=== PATIENT | female | born 1935 | race Caucasian/White ===

== ENCOUNTER 2017-06-04 09:51 | Outpatient (CLI) | payer MEDICARE ==
--- NOTE | 2017-06-04 11:59 | RAD ---
2 VIEW CHEST: Date: 06/04/17 HISTORY: Dyspnea. COMPARISON: 04/08/16. FINDINGS: Mild elevation right hemidiaphragm is unchanged in appearance. Increased stranding in the left lung b ase is seen, possibly representing atelectasis or infiltrate. Lungs otherwise appear clear and unchan ged. The heart is mildly enlarged and stable. IMPRESSION: Question new atelectasis or streaky infiltrate in the left lung base. POS: [facility]
== END 2017-06-04 09:52 | disposition home or self-care (01) ==
LOC: RAD 09:51
PROVIDERS: ATTEND Internal Medicine Critical Care Medicine
DX: R06.00 Dyspnea, unspecified (principal)
CPT/HCPCS: 71046

== ENCOUNTER 2017-07-20 08:56 | Outpatient (CLI) | payer MEDICARE ==
--- NOTE | 2017-07-20 10:24 | RAD ---
CHEST 2 VIEWS: HISTORY: R06.00, dyspnea. COMPARISON: Chest radiograph 06/04/17. FINDINGS: Heart size is mildly enlarged. Similar appearance to the left basilar airspace opacity. The right lung is relatively clear. Mild spondylosis. Cardiac size is mildly enlarged. No pneumothorax. Moderate degenerative changes of the acromioclavicular joint. IMPRESSION: Similar appearance to the left basilar airspace opacity. Given the lack of improvement, nonemergent followup CT of the chest may be beneficial. POS: [facility]
== END 2017-07-20 08:57 | disposition home or self-care (01) ==
LOC: RAD 08:56
PROVIDERS: ATTEND Internal Medicine Critical Care Medicine
DX: R06.00 Dyspnea, unspecified (principal)
CPT/HCPCS: 71046

== ENCOUNTER 2017-09-09 12:31 | Outpatient (CLI) | payer MEDICARE | END 2017-09-09 12:32 | disposition home or self-care (01) | LOC: ULT 12:31 | PROVIDERS: ATTEND Internal Medicine | DX: H34.212 Partial retinal artery occlusion, left eye (principal); I11.0 Hypertensive heart disease with heart failure; I50.32 Chronic diastolic (congestive) heart failure; K29.80 Duodenitis without bleeding; I08.3 Combined rheumatic disorders of mitral, aortic and tricuspid valves | CPT/HCPCS: 93306 ==

== ENCOUNTER 2018-03-28 11:46 | Emergency (ER) | payer MEDICARE ==
[2018-03-28] MEDS ORDERED: Acetaminophen 325 MG TAB ONE (12:27)
== END 2018-03-28 14:55 | disposition home or self-care (01) ==
LOC: ERS 11:46
DX: G50.0 Trigeminal neuralgia (principal); E78.5 Hyperlipidemia, unspecified; I10 Essential (primary) hypertension; J44.9 Chronic obstructive pulmonary disease, unspecified; Z86.711 Personal history of pulmonary embolism; Z87.891 Personal history of nicotine dependence
CPT/HCPCS: 36415; 85652; 99283

== ENCOUNTER 2018-04-01 01:21 | Emergency (ER) | payer MEDICARE ==
[2018-04-01 04:24] LABS: Hemoglobin 13.8 g/dL (12.0-16.0); Mean Corpuscular HGB CONC 31.7 g/dL (32.0-36.0); Mean Corpuscular Hemoglobin 29.5 pg (27.0-31.0); Mean Corpuscular Volume 92.9 fL (78.0-98.0); Mean Platelet Volume 7.6 fL (7.4-10.4); Platelet Count 214 thou/uL (130-400); RBC Distribution Width 14.7 % (11.5-14.5); Red Blood Cell (RBC) Count 4.68 mill/uL (4.20-5.40); White Blood Cell (WBC) Count 7.5 thou/uL (4.8-10.8)
[2018-04-01 04:43] LABS: ALT (SGPT) 24 U/L (8-55); AST (SGOT) 21 U/L (5-34); Albumin 3.7 g/dL (3.4-4.8); Alkaline Phosphatase 126 U/L (40-150); Anion Gap 13 mmol/L (10-20); BUN (Urea Nitrogen) 28 mg/dL (9.8-20.1); Bilirubin, Total 0.7 mg/dL (0.2-1.2); Calc. Creatinine Clearance 0 mL/min (70-130); Calcium 9.8 mg/dL (7.8-10.44); Carbon Dioxide 36 mmol/L (23-31); Chloride 92 mmol/L (98-107); Estimated GFR-MDRD 75; Glucose 101 mg/dL (83-110); Potassium 4.2 mmol/L (3.5-5.1); Protein, Total 6.7 g/dL (6.0-8.3); Sodium 137 mmol/L (136-145)
[2018-04-01 04:47] LABS: #Eosinphils 0.1 thou/uL (0.0-0.7); #Lymphocytes 1.5 thou/uL (1.20-3.40); #Monocytes 0.8 thou/uL (0.11-0.59); #Neutrophils 5.1 thou/uL (1.40-6.50); %Basophils 0.3 % (0.0-1.0); %Eosinophils 1.7 % (0.0-10.0); %Lymphocytes 19.6 % (21.0-51.0); %Monocytes 10.5 % (0.0-10.0); %Neutrophils 67.9 % (42.0-75.0); Anisocytosis SLIGHT = 6-15 cells (100X) (0-5/hpf); MDiff Complete? YES
[2018-04-01] MEDS ORDERED: Acetaminophen 325 MG TAB ONE (05:22)
--- NOTE | 2018-04-01 08:38 | CT ---
PRELIMINARY REPORT/[facility]/EMERGENTY AFTER-HOURS PROCEDURE CT Head Without Contrast EXAM DATE/TIME: 04/01/2018 4:20 AM CLINICAL HISTORY: 82 years old, female; Pain; Headache; Patient HX: Er 8; PT states "i've had this pounding in my face (points to right amish) since thursday. TECHNIQUE: Axial computed tomography images of the head/brain without contrast. COMPARISON: No relevant prior studies available. FINDINGS: Brain: Normal. Ventricles: Normal. Bones/joints: Normal. Sinuses: Normal as visualized. Mastoid air cells: Normal as visualized. Soft tissues: Unremarkable. IMPRESSION: No acute intracranial abnormality. Thank you for allowing us to participate in the care of your patient. Dictated and Authenticated by: Domenic Granda MD 04/01/2018 4:30 AM Central Time ([place] & [place]) FINAL REPORT EMERGENCY AFTER HOURS BRAIN CT WITHOUT IV CONTRAST: Date: 04/01/18 Time: 0421 hours HISTORY: Altered mental status. FINDINGS/IMPRESSION: Mild stable atrophy and chronic white matter ischemic change. No mass or bleed, or other acute proces s. Report in agreement with preliminary report given on-call by Dulce Maria. POS: [facility]
== END 2018-04-01 05:53 | disposition home or self-care (01) ==
LOC: ERS 01:21
DX: R51 Headache (principal); E78.5 Hyperlipidemia, unspecified; I10 Essential (primary) hypertension; F41.9 Anxiety disorder, unspecified; F32.9 Major depressive disorder, single episode, unspecified; Z87.891 Personal history of nicotine dependence; Z79.899 Other long term (current) drug therapy
CPT/HCPCS: 36415; 70450; 80053; 85025; 85652

== ENCOUNTER 2018-04-05 14:29 | Outpatient (CLI) | payer MEDICARE | END 2018-04-05 14:30 | disposition home or self-care (01) | LOC: CTENTCT 14:29 | PROVIDERS: ATTEND Otolaryngology Plastic Surgery within the Head & Neck | DX: J32.9 Chronic sinusitis, unspecified (principal) | CPT/HCPCS: 70486 ==

== ENCOUNTER 2018-06-14 13:15 | Outpatient (CLI) | payer MEDICARE ==
--- NOTE | 2018-06-14 13:31 | RAD ---
EXAM: Chest 2 views: HISTORY: Dyspnea COMPARISON: 07/20/2017 FINDINGS: There is a normal-sized cardiomediastinal silhouette. Increased interstitial markings are present. Th ere is no evidence of consolidation, mass, or pleural effusion. The bones are unremarkable. IMPRESSION: No evidence of acute cardiopulmonary disease
== END 2018-06-14 13:16 | disposition home or self-care (01) ==
LOC: RAD 13:15
PROVIDERS: ATTEND Internal Medicine Critical Care Medicine
DX: R06.00 Dyspnea, unspecified (principal)
CPT/HCPCS: 71046

== ENCOUNTER 2018-07-21 10:06 | Outpatient (CLI) | payer MEDICARE ==
--- NOTE | 2018-07-21 11:37 | RAD ---
CHEST TWO VIEWS: INDICATIONS: History of dyspnea. COMPARISON: 06/14/2018 FINDINGS: There is stable cardiomegaly and chronic lung changes. There is stable elevation of the right hemidi aphragm. No acute air space opacity or pleural effusion is evident. Chronic osseous changes are sta ble. IMPRESSION: No definite acute abnormality. POS: [facility]
== END 2018-07-21 10:07 | disposition home or self-care (01) ==
LOC: RAD 10:06
PROVIDERS: ATTEND Internal Medicine Critical Care Medicine
DX: R06.00 Dyspnea, unspecified (principal)
CPT/HCPCS: 71046

== ENCOUNTER 2018-09-28 10:23 | Inpatient (IN) | payer MEDICARE ==
--- NOTE | 2018-09-28 11:36 | RAD ---
XR Chest 1 View Portable History: Dyspnea Comparison: Radiograph July 21, 2018 Findings: Lungs are hypoinflated with vascular crowding. Heart size is enlarged. No pneumothorax. No focal airspace consolidation. There is a linear 1 x 5 mm radiopaque object projecting over the right hemithorax, seen on the prior examination. Impression: Lung hypoinflation and cardiomegaly. No evidence for pneumonia.
[2018-09-28 11:44] LABS: #Eosinphils 0.1 thou/uL (0.0-0.7); #Lymphocytes 0.9 thou/uL (1.20-3.40); #Monocytes 0.6 thou/uL (0.11-0.59); %Basophils 0.6 % (0.0-1.0); %Eosinophils 2.2 % (0.0-10.0); %Lymphocytes 13.7 % (21.0-51.0); %Monocytes 9.4 % (0.0-10.0); %Neutrophils 74.1 % (42.0-75.0); Hemoglobin 12.9 g/dL (12.0-16.0); Mean Corpuscular HGB CONC 32.4 g/dL (32.0-36.0); Mean Corpuscular Hemoglobin 29.5 pg (27.0-31.0); Mean Corpuscular Volume 91.3 fL (78.0-98.0); Platelet Count 193 thou/uL (130-400); RBC Distribution Width 14.8 % (11.5-14.5); Red Blood Cell (RBC) Count 4.35 mill/uL (4.20-5.40); White Blood Cell (WBC) Count 6.7 thou/uL (4.8-10.8)
[2018-09-28 12:16] LABS: ALT (SGPT) 21 U/L (8-55); AST (SGOT) 22 U/L (5-34); Albumin 3.6 g/dL (3.4-4.8); Alkaline Phosphatase 147 U/L (40-150); BUN (Urea Nitrogen) 33 mg/dL (9.8-20.1); Bilirubin, Total 0.4 mg/dL (0.2-1.2); Calc. Creatinine Clearance 0 mL/min (70-130); Calcium 9.9 mg/dL (7.8-10.44); Estimated GFR-MDRD 69; Globulin 3.1 g/dL (2.4-3.5); Glucose 72 mg/dL (83-110); Protein, Total 6.7 g/dL (6.0-8.3)
[2018-09-28 12:25] LABS: Chloride 93 mmol/L (98-107)
[2018-09-28 12:26] LABS: Potassium 3.9 mmol/L (3.5-5.1); Sodium 138 mmol/L (136-145)
[2018-09-28 12:28] LABS: Anion Gap 11 mmol/L (10-20); Carbon Dioxide 38 mmol/L (23-31)
[2018-09-28] MEDS ORDERED: Furosemide 40 MG/4 ML VIAL ONE (13:27)
--- NOTE | 2018-09-28 13:55 | PDOC.FPRHP ---
- History of Present Illness Chief Complaint: SOB History of Present Illness: Pt is a 83yo female with a history of CHF and medication noncompliance who presented to the ED for increasing lower extremity edema and shortness of breath. Pt states that she has been on lasix for a long time for which she attributes soley to her history of edema, denying any knowledge of CHF. For the last 3 days she states she has not taken the lasix because she felt it was not helping. She presented today because she realized last night that she was not able to sleep in her bed due to orthopnea which happens occasionally but was also not even able to sleep in her recliner which is new for her. Pt's daughter is a lining maker hand and coordinates the pt's cardiology care but is currently on vacation and was unable to be reached. Pt denies any cough, fever, chills, chest pain, or other recent illnesses. In the ED pt was given a dose of lasix and immediately started to diurese. While on the monitor she was found to have several episodes of bradycardia with heart rates dropping into the 20s-40s. Pt denied any symptoms during these episodes. She denied any recent lightheadedness, dizziness, or near syncope. She did note noticing some mild palpitations over the last couple weeks. Pt was admitted for CHF exacerbation over a year ago with resulted in acute respiratory failure and her needing to be intubated and discharged to group home for rehab. - Allergies/Adverse Reactions Allergies Allergy/AdvReac Type Severity Reaction Status Date / Time iodine Allergy Severe Short of Verified 11/20/15 06:39 Breath adhesive Allergy Verified 11/20/15 06:39 Cephalosporins Allergy Rash Verified 11/21/15 11:32 - Home Medications Medication Instructions Recorded Confirmed Type Albuterol Sulfate [Ventolin HFA] 2 puff INH Q6HR PRN 11/20/15 11/20/15 History Anastrozole 1 mg PO DAILY 11/20/15 11/20/15 History Atorvastatin Calcium 20 mg PO HS 11/20/15 11/20/15 History Escitalopram Oxalate [Lexapro] 20 mg PO DAILY 11/20/15 11/20/15 History Fish Oil 1,000 mg PO DAILY 11/20/15 11/20/15 History Losartan/Hydrochlorothiazide 1 tab PO DAILY 11/20/15 11/20/15 History [Losartan-Hctz 100-25 mg Tab] Omeprazole Magnesium [Prilosec OTC] 20 mg PO DAILY 11/20/15 11/20/15 History Pramipexole Di-HCl [Pramipexole 2 mg PO BID 11/20/15 11/20/15 History Dihydrochloride] ALPRAZolam [Xanax] 0.25 mg PO BIDPRN PRN #0 tab 11/29/15 Rx Acetaminophen [Tylenol Suppository] 650 mg IN Q4H PRN #0 supp 11/29/15 Rx Apixaban [Eliquis] 5 mg PO BID #0 tab 11/29/15 Rx Aspirin Chewable [Aspirin Chewable 81 mg PO DAILY #0 tab 11/29/15 Rx Tablet] Budesonide-Formoterol [Symbicort 2 puff INH BID-RT #0 aer 11/29/15 Rx 160-4.5] Doxycycline [Vibramycin] 100 mg PO BID #0 cap 11/29/15 Rx Furosemide [Lasix] 80 mg PO 1200 #0 tab 11/29/15 Rx Ipratropium/Albuterol Sulfate 3 ml NEB [id number] #0 neb 11/29/15 Rx [DuoNeb] Losartan/Hydrochlorothiazide 1 tab PO DAILY #0 tab 11/29/15 Rx [Hyzaar] Metoprolol Succinate [Toprol XL] 25 mg PO DAILY #0 tab 11/29/15 Rx Potassium Chloride [K-Dur] 40 meq PO 1000 #0 tab 11/29/15 Rx Pramipexole Di-HCl [Mirapex] 0.5 mg PO BID #0 tab 11/29/15 Rx Spironolactone [Aldactone] 25 mg PO 1000 #0 tab 11/29/15 Rx guaiFENesin ER [Mucinex] 600 mg PO Q12HR #0 tab 11/29/15 Rx Comments: Above medication list is old, please refer to the following for updated Rx: losartan-hydrochlorothiazide 100-25mg, 0.5 tabs daily Eliquis 5mg daily Pantoprazole 40mg daily Atorvastatin 20mg daily Escitalopram 20mg daily Furosemide 80mg BID KCl 20mE1 daily Breo 100mcg-25mcg daily - History PMHx: breast and uterine cancer, HTN, HLD, pulmonary embolism (with chronic anticoagulation), COPD PSHx: Cholecystectomy, hysterectomy, bilateral mastectomy, spinal surgery, venous ablation FHx: Non contributory Social: Quit smoking 50 years ago. No alcohol use. - Review of Systems General: denies: fever/chills, fatigue Eyes: denies: vision changes ENT: reports: rhinorrhea Respiratory: reports: shortness of breath, exercise intolerance. denies: cough , congestion Cardiovascular: reports: palpitation, edema, orthopnea. denies: chest pain Gastrointestinal: denies: nausea, vomiting, diarrhea, constipation, abdominal pain Genitourinary: denies: dysuria, polyuria Skin: denies: rashes, lesions Musculoskeletal: denies: pain, tenderness Neurological: denies: numbness, syncope, weakness Psychological: denies: other - Vital signs BP: [] HR: [] RR: [] Tmax: [] Pox: []% on [] Wt: [] - Physical Exam Constitutional: NAD, awake, alert and oriented -Constitutional: Morbidly obese HEENT: normocephalic and atraumatic, EOMI Neck: supple, FROM -Neck: JVD noted Heart: normal S1/S2, pulses present -Heart: 4+ pitting edema bilaterally to LE, 3/6 holosystolic murmur, bradycardic Abdomen: soft, non-tender, bowel sounds present Musculoskeletal: normal structure, normal tone, ROM grossly normal Neurological: no focal deficit, CN II-XII intact Skin: no rash/lesions, capillary refill <2 seconds Heme/Lymphatic: no unusual bruising or bleeding, no purpura Psychiatric: normal mood and affect, good judgment and insight, intact recent and remote memory FMR H&P: Results - Labs Result Diagrams: 09/28/18 11:10 09/28/18 11:10 Lab results: WBC 6.7 thou/uL (4.8-10.8) 09/28/18 11:10 Hgb 12.9 g/dL (12.0-16.0) 09/28/18 11:10 Hct 39.7 % (36.0-47.0) 09/28/18 11:10 MCV 91.3 fL (78.0-98.0) 09/28/18 11:10 Plt Count 193 thou/uL (130-400) 09/28/18 11:10 Neutrophils % 74.1 % (42.0-75.0) 09/28/18 11:10 Sodium 138 mmol/L (136-145) 09/28/18 11:10 Potassium 3.9 mmol/L (3.5-5.1) 09/28/18 11:10 Chloride 93 mmol/L (98-107) L 09/28/18 11:10 Carbon Dioxide 38 mmol/L (23-31) H 09/28/18 11:10 BUN 33 mg/dL (9.8-20.1) H 09/28/18 11:10 Creatinine 0.80 mg/dL (0.6-1.1) 09/28/18 11:10 Glucose 72 mg/dL (83-110) L 09/28/18 11:10 Calcium 9.9 mg/dL (7.8-10.44) 09/28/18 11:10 Total Bilirubin 0.4 mg/dL (0.2-1.2) 09/28/18 11:10 AST 22 U/L (5-34) 09/28/18 11:10 ALT 21 U/L (8-55) 09/28/18 11:10 Alkaline Phosphatase 147 U/L (40-150) 09/28/18 11:10 B-Natriuretic Peptide 168.7 pg/mL (0-100) H 09/28/18 11:10 Serum Total Protein 6.7 g/dL (6.0-8.3) 09/28/18 11:10 Albumin 3.6 g/dL (3.4-4.8) 09/28/18 11:10 - EKG Interpretation EKG: Sinus bradycardia - Radiology Interpretation Chest x-ray Status: image reviewed by me (Lung hypoinflation, cardiomegaly), report reviewed by ne FMR H&P: A/P - Problem List (1) Acute exacerbation of congestive heart failure Current Visit: Yes Status: Acute Code(s): I50.9 - HEART FAILURE, UNSPECIFIED (2) Bradycardia Current Visit: Yes Status: Acute Code(s): R00.1 - BRADYCARDIA, UNSPECIFIED (3) Noncompliance w/medication treatment due to intermit use of medication Current Visit: Yes Status: Acute Code(s): Z91.14 - PATIENT'S OTHER NONCOMPLIANCE WITH MEDICATION REGIMEN (4) HTN (hypertension) Current Visit: No Status: Chronic Code(s): I10 - ESSENTIAL (PRIMARY) HYPERTENSION Qualifiers: Hypertension type: essential hypertension Qualified Code(s): I10 - Essential (primary) hypertension - Plan Acute on chronic HFpEF exacerbation Recent medication noncompliance with diuretic Last echo 08/2017 showed EF 55-60%, diastolic dysfunction. - Cardiology was consulted and saw pt in ED, per recommendations: -hold toprol -hold eliquis in case need for pacemaker placement -repeat echo -IV diuresis, 40 BID - BNP similar to prior - Monitor output with strict I/Os - HH diet with 1800 fluid restriction Sinus bradycardia - asymptomatic - Beta renaldo discontinued per Dr. Patel - stated may take up to 3 days before it is out of her system - Will admit to telemetry for continous monitoring - Stopped eliquis in case the need for pacemaker placement arises Deconditioning Pt's daughter reports recent generalized deconditioning with decreased exercise tolerance and mobility starting prior to new worsening of her shortness of breath and orthopnea HTN - Stopping beta renaldo - Will continue home Condition: Stable Code status: Full Diet: HH w/ fluid restriction VTE: SCD Dispo: Admit to tele inpt for CHF exacerbation and general deconditioning FMR H&P: Upper Level - Pertinent history 83 yo F with PMH HFpEF, COPD, HTN, HLD, LE edema presents for SOB today. She has noted LE edema for months and doesnt feel Lasix has helped much so she stopped taking it 3 days. Patient lives at home with caregiver assistance and ambulated with wheelchair. Reports significant orthopnea last night, slept in recliner. In ED noted to have intermittent asymptomatic bradycardia down to 30s along with [address] Patel consulted. - Pertinent findings General: NAD Heart: RRR, 3/6 systolic ejection murmur R sternal border, JVD present Lungs: Mild diffuse crackles, no respiratory distress or supplemental O2 Ext: 4+ pitting edema BLE CXR: cardiomegaly BNP 168 EKG: NSR, strip with periods of sinus bradycardia - Plan Date/Time: 09/28/18 1353 Acute on chronic HFpEF exacerbation 2/2 medication noncompliance - Last echo 08/2017 showed EF 55-60%, diastolic dysfunction. Will order repeat echo - Noncompliant with home Lasix 80 mg BID regimen - IV diuresis, 40 BID - BNP similar to prior - Monitor output with strict I/Os Asyptomatic bradycardia - Beta renaldo discontinued - Dr. Patel consulted, plan for consideration of pacemaker and discontinuation of eliquis in preparation - Monitor on telemetry Hx of PE on chronic anticoagulation HTN HLD COPD Hx breast and uterine cancer Ppx: SCDs Code: FULL I, Courtney Hines DO, have evaluated this patient and agree with findings/plan as outlined by graphics intern resident. Pertinent changes/additions are listed here. Addendum - Attending - Attending Attestation Date/Time: 09/29/18 0381 I personally evaluated the patient and discussed the management with Dr. Sinha I agree with the History, Examination, Assessment and Plan documented above with any addition or exceptions noted below.
--- NOTE | 2018-09-28 15:13 | CON ---
DATE OF CONSULTATION: 09/28/2018 REASON FOR CONSULTATION: Bradycardia. HISTORY OF PRESENT ILLNESS: Mrs. Leblanc is a very pleasant 83-year-old white female, who comes to the hospital for shortness of breath. She has been on Lasix chronically for lower extremity edema and three days ago, she decided she did not need it any more as she noticed that the swelling would get better with Lasix, but it would just come back the next day. She said if it is not getting any better, why would I need it. She stopped the Lasix and progressively got more short winded to the point where she could not breathe earlier today, so she was brought in for evaluation of this. She was given a dose of IV Lasix and was getting plan on being admitted for further evaluation and care. She then was placed on the monitor here in the ER and she was found to have several episodes of bradycardia, heart rate down to the 20s to 30s, asymptomatic. She is denying any chest pain, tightness, pressure. No lightheadedness. No syncope or presyncope. On my evaluation, she is talking with me without any issues and she goes down to the 20s at one point and she did not really feel that. When I pointed out on the monitor, she just turned around and sat on and feel the same. Her blood pressure has not been an issue while she has been here and she states she already feeling a little bit better after IV diuresis. She has been on metoprolol 25 mg a day for the last 3 years. About 3 years ago, she was seen in the hospital by Dr. Delatorre for pulmonary embolism and had runs of sustained supraventricular tachycardia, at that point, she was started on the beta-renaldo. She did see Dr. Redd in the office for lower extremity edema and venous disease. She was recommended to undergo venous ablation and she never had it done here, but apparently family tells me she had this done in [place] about 2 years ago. PAST MEDICAL HISTORY: 1. History of pulmonary embolism, currently on chronic anticoagulation. 2. History of breast cancer, status post resection and in remission now. 3. History of diastolic heart failure. 4. History of hyperlipidemia. 5. Hypertension. 6. COPD. SURGICAL HISTORY: 1. Cholecystectomy. 2. Hysterectomy. 3. Bilateral mastectomy. 4. Spinal surgery. 5. Venous ablation from what she is telling me. SOCIAL HISTORY: Former tobacco user. She quit about 55 years ago. No alcohol or drug use. ALLERGIES: 1. ADHESIVE TAPE. 2. IODINE. 3. CEPHALOSPORIN. OUTPATIENT MEDICATIONS: 1. Guaifenesin. 2. Aldactone 25 mg a day. 3. Pramipexole. 4. Potassium chloride. 5. Prilosec. 6. Toprol-XL 25 mg a day. 7. Losartan/hydrochlorothiazide 100/25 a day. 8. DuoNeb. 9. Lasix 40 mg a day. 10. Fish oil. 11. Lexapro. 12. Doxycycline. 13. Symbicort. 14. Lipitor 20 mg a day. 15. Aspirin 81 a day. 16. Eliquis 5 mg b.i.d. 17. Anastrozole. 18. Albuterol inhaler. 19. Tylenol p.r.n. 20. Xanax p.r.n. FAMILY HISTORY: Noncontributory. REVIEW OF SYSTEMS: A 12-point review of systems was done and was all negative unless stated in the history of present illness. PHYSICAL EXAMINATION: VITAL SIGNS: Temperature 97.2, pulse 55 to 62, respiratory rate 18, sat 98% on 2 L nasal cannula. GENERAL: Awake, alert, oriented x3, no distress. HEENT: Normocephalic and atraumatic. NECK: Supple. LUNGS: Clear. CARDIOVASCULAR: S1 and S2. No S3 or S4. No murmurs. ABDOMEN: Soft. Positive bowel sounds. EXTREMITIES: 3+ edema with local erythema and warmth. Not painful. She states she is at her baseline as far as her legs are concerned. SKIN: Warm and dry. LABORATORY DATA: Laboratory work was reviewed. CBC with a white count of 6, hemoglobin 12, hematocrit 39, platelet count of a 193. Chemistry, troponin is undetectable. BNP was 168. BMP is unremarkable except for chloride of 93 and a carbon dioxide of 38, gap of 11, BUN of 33, creatinine 0.8, GFR of 69, glucose was 72, albumin was 3.6. Telemetry strips were reviewed. She has been in sinus rhythm and sinus bradycardia, at one point heart rate went down to 28 beats per minute, asymptomatic. The pauses about 3.2 seconds. ASSESSMENT AND PLAN: 1. Sinus bradycardia. 2. Acute on chronic diastolic heart failure. 3. Medication noncompliance. 4. Aortic valve stenosis in the moderate range on an echo a year ago. 5. History of supraventricular tachycardia in the setting of a pulmonary embolism. 6. Beta-renaldo use. 7. Chronic obstructive pulmonary disease. PLAN: 1. Agree with IV diuresis with Lasix. 2. We will plan on stopping Toprol-XL at this point. She would only be a candidate if she continues to recur her bradycardia off the beta-renaldo. Usually takes up to three days for this medication to wear off. 3. Would monitor in the telemetry unit, make sure she is not having more bradycardia and if her episodes become more frequent, we would plan on trying to put in a temporary first. 4. She is on chronic anticoagulation with Eliquis and actually took a dose this morning. We would have to hold it for now as she would very likely to need a pacemaker in the next few days. 5. Continue IV diuresis with Lasix at 40 IV b.i.d. 6. We will follow. Job ID: [id number]
[2018-09-28] MEDS ORDERED: Acetaminophen 325 MG TAB PO PRN (17:39)
--- NOTE | 2018-09-28 19:17 | PDOC.EVN ---
Event Note - Event Note Event Note: I personally evaluated the patient and discussed the management with Dr. Sinha. I agree with the History and Physical exam assessment and plan as documented in separate note see HX and PE. CC progressive orthopnea last several days she denies any CP HPI pleasant 83 yo female with history medication noncompliance stopped Lasix for several days as she felt was not effective. Patient evaluated in ER with fluid overload and marked bradycardia to 20-30s felt secondary to her beta renaldo. Patient seen In ER per Cardiology and admitted for IV diuresis and expectant management off BB possible need for pacemaker if SSS. Echo last about year EF 55% and diastolic dysfunction. PMX MEDS see resident note list multiple non-compliant with lasix ALLERGIES NKDA HABITS remote tobacco SOCIAL has very attentive caregiver at bedside [facility] hx respiratory arrest intubation SURGERY Bilateral mastectomy, Hysterectomy History: breast CA and later nonrelated uterine CA no radiation,COPD, HTH,HX PE and chronic venous HTN with marked LE edema ROS per resident note P.E. alert pleasant NAD at time of my exam s/p Lasix with marked urine outpt CV BHARGAVI 2-3/6 rate 50s PULM no rales appreciated GI obese non tender Extremities 4+ pitting edema and continues above knees to thighs ASSESSMENT/PLAN Bradycardia admit to telemetry hold BB, follow up echocardiogram and Cardiology consulted for further recommendation r/o SSS drug effect appreciate Cardiology recommendations Fluid overload non compliance rec fluid restriction, sodium restricted diet, IV diuresis HX PE eliquis on hold for possible pacemaker etc HX COPD history respiratory failure requiring intubation reactive airway continue breathing treatments Obesity and Marked deconditioning good candidate for transition to rehab status for continued recovery discussed with Daughter CODE STATUS Full
[2018-09-29] MEDS ORDERED: ALPRAZolam 0.25 MG TAB PO SCH (04:30)
[2018-09-29] MEDS: Furosemide 40 MG/4 ML VIAL SLOW IVP SCH ×2 (05:45→14:25)
--- NOTE | 2018-09-29 06:29 | PDOC.FM ---
- Subjective Subjective: Pt feels her shortness of breath has improved as she was able to sleep at a slightly reclined position last night. Night team was paged for the patient to get her home xanax dose as she was anxious and had difficulty sleeping. She feels the swelling in her legs have also improved. - Objective Vital Signs & Weight: Vital Signs (12 hours) Temp Pulse Resp BP Pulse Ox 09/29/18 04:07 97.1 F L 62 18 145/65 H 97 09/28/18 20:05 70 18 103/61 95 Weight Weight 113.171 kg I&O: 09/27/18 09/28/18 09/29/18 06:59 06:59 06:59 Intake Total 600 Output Total 800 Balance -200 Result Diagrams: 09/28/18 11:10 09/28/18 11:10 Phys Exam - Physical Examination Constitutional: NAD Morbidly obese HEENT: PERRLA, moist MMs Neck: no JVD, full ROM Respiratory: no wheezing, no rales, no rhonchi, clear to auscultation bilateral Cardiovascular: RRR Soft ejection murmur Gastrointestinal: soft, non-tender, positive bowel sounds Musculoskeletal: pulses present, edema present (4+ bilaterally) Neurological: non-focal, moves all 4 limbs Psychiatric: normal affect, A&O x 3 Skin: no rash, cap refill <2 seconds Dx/Plan (1) Acute exacerbation of congestive heart failure Code(s): I50.9 - HEART FAILURE, UNSPECIFIED Status: Acute (2) Bradycardia Code(s): R00.1 - BRADYCARDIA, UNSPECIFIED Status: Acute (3) Noncompliance w/medication treatment due to intermit use of medication Code(s): Z91.14 - PATIENT'S OTHER NONCOMPLIANCE WITH MEDICATION REGIMEN Status : Acute (4) HTN (hypertension) Code(s): I10 - ESSENTIAL (PRIMARY) HYPERTENSION Status: Chronic Qualifiers: Hypertension type: essential hypertension Qualified Code(s): I10 - Essential (primary) hypertension - Plan Plan: Acute on chronic HFpEF exacerbation Recent medication noncompliance with diuretic Last echo 08/2017 showed EF 55-60%, diastolic dysfunction. - Cardiology was consulted and saw pt in ED, per recommendations: -hold toprol -hold eliquis in case need for pacemaker placement -IV diuresis, Lasix 40 BID - BNP similar to prior - Monitor output with strict I/Os - HH diet with 1800 fluid restriction - Echo ordered 09/27, exam still pending - HR ranged 60-70 overnight on vital checks Sinus bradycardia - asymptomatic - Beta renaldo discontinued per Dr. Patel - stated may take up to 3 days before it is out of her system - Stopped eliquis in case the need for pacemaker placement arises - Telemetry for continous monitoring and assessment of pacemaker need - Dr. Delatorre, cardiology, saw pt this am and feels it is very likely she will need pacemaker, will cont to monitor off beta renaldo Deconditioning Pt's daughter reports recent generalized deconditioning with decreased exercise tolerance and mobility starting prior to new worsening of her shortness of breath and orthopnea HTN - Stopping beta renaldo - Waiting to receive home medication list from caregiver this morning - Will restart other home BP medications then - BP this am 145/65 Condition: Stable Code status: Full Diet: HH w/ fluid restriction VTE: SCD Dispo: Admit to tele inpt for CHF exacerbation and general deconditioning
--- NOTE | 2018-09-29 09:09 | PRG ---
DATE OF SERVICE: 09/29/2018 SUBJECTIVE: Ms. Pringle feels better today. She said she had a restless night; however. She said her breathing is better. OBJECTIVE: VITAL SIGNS: Her blood pressure is 145/65 and pulse is now in the 60 range, but she did have heart rate in the 20s last night while sleeping. LUNGS: Clear. CARDIAC: Normal S1. Normal S2. ABDOMEN: Soft and nontender. EXTREMITIES: There is still [id number] edema. ASSESSMENT: 1. Diastolic congestive heart failure. 2. Severe sinus bradycardia. 3. History of pulmonary embolism. I believe that is the reason, she is still on Eliquis from three years ago. PLAN: 1. Eliquis has been discontinued for now. 2. Continue intravenous diuresis. 3. Repeat echocardiogram. 4. Almost certainly will need pacemaker insertion if she indeed was only getting 25 mg of metoprolol a day, need to try to confirm that was the dose she was taking at home, in the chart, there are question elizabeth on that dose. Job ID: [id number]
[2018-09-29] MEDS: Spironolactone 25 MG TAB PO SCH (10:49)
[2018-09-29] MEDS ORDERED: PROVENTIL INHALER 6.7 G (200 INHALATIONS) INH PRN (11:42)
[2018-09-29] MEDS ORDERED: Potassium Chloride 20 MEQ TAB PO SCH (12:00)
--- NOTE | 2018-09-29 12:02 | PRG ---
DATE OF SERVICE: 09/29/2018 Ms. Pringle is a pleasant 83-year-old lady with a history of diastolic heart failure. She quit taking her high dosages of Lasix 3 days ago because she "did not think they were doing any good." She became progressively more short of breath and presented with significant pulmonary congestion and exacerbation of diastolic heart failure. She was also noted to have a profound bradycardia with a rate down in the 20s despite being only on 25 mg a day of metoprolol. She has been seen already by Cardiology, and we appreciate their input. We are waiting for the metoprolol to wear off after 3 days to re-evaluate her for possible pacemaker. In the event clinically, she has diuresed well and is already feeling better. Job ID: [id number]
[2018-09-29] MEDS: Mometasone/Formoterol 120 PUFF INHALER INH SCH (19:03)
[2018-09-29] MEDS: Pramipexole Di-HCl 1 MG TAB PO SCH (20:14)
[2018-09-29] MEDS: guaiFENesin ER 600 MG TAB PO SCH (20:15)
[2018-09-29] MEDS: Atorvastatin Calcium 20 MG TAB PO SCH (20:15)
[2018-09-29] MEDS ORDERED: ALPRAZolam 0.25 MG TAB PO PRN (20:59)
--- NOTE | 2018-09-30 02:33 | PDOC.EVN ---
Event Note - Event Note Event Note: Patient with several prolonged pauses had 14 sec pause with unresponsiveness she responded to CPR initiation with 4-5 chest compressions. Patient is alert and responsive with temporary transcutaneous pacer leads placed but not actuated. BP 160/90 p80 will transfer to CCU and Cardiology notified for further consideration.family notified.
[2018-09-30] MEDS ORDERED: Atropine Sulfate 1 mg/1 ml Vial IVP PRN (02:47)
[2018-09-30] MEDS ORDERED: Lorazepam 0.5 MG TAB PO SCH (03:00)
[2018-09-30 04:08] LABS: Anion Gap 11 mmol/L (10-20); BUN (Urea Nitrogen) 31 mg/dL (9.8-20.1); Calc. Creatinine Clearance 106 mL/min (70-130); Calcium 9.5 mg/dL (7.8-10.44); Carbon Dioxide 37 mmol/L (23-31); Chloride 91 mmol/L (98-107); Estimated GFR-MDRD 77; Glucose 104 mg/dL (83-110); Potassium 4.1 mmol/L (3.5-5.1); Sodium 135 mmol/L (136-145)
[2018-09-30] MEDS: Furosemide 40 MG/4 ML VIAL SLOW IVP SCH (05:27)
[2018-09-30] MEDS: Mometasone/Formoterol 120 PUFF INHALER INH SCH ×2 (07:04→19:15)
--- NOTE | 2018-09-30 07:15 | PDOC.FM ---
- Subjective Subjective: pt resting comfortably in bed, denies repeat dizziness/syncope. denies cp or sob currently - Objective Vital Signs & Weight: Vital Signs (12 hours) Temp Pulse Resp BP Pulse Ox 09/30/18 07:04 67 16 09/30/18 03:00 97.5 F L 98 09/29/18 23:30 97.5 F L 09/29/18 21:31 77 12 09/29/18 19:23 97.5 F L 76 18 138/60 95 Weight Admit Weight 114.033 kg Weight 11.6 kg Most Recent Monitor Data Heart Rate from ECG 65 NIBP 96/55 NIBP BP-Mean 68 Respiration from ECG 15 SpO2 98 I&O: 09/29/18 09/30/18 10/01/18 06:59 06:59 06:59 Intake Total 600 1080 Output Total 800 3600 Balance -200 -2520 Result Diagrams: 09/28/18 11:10 09/30/18 03:21 Phys Exam - Physical Examination Constitutional: NAD HEENT: moist MMs Neck: no JVD Respiratory: clear to auscultation bilateral Cardiovascular: no significant murmur Gastrointestinal: no distention Musculoskeletal: no edema, pulses present Neurological: moves all 4 limbs Psychiatric: normal affect Skin: no rash Dx/Plan (1) Acute exacerbation of congestive heart failure Code(s): I50.9 - HEART FAILURE, UNSPECIFIED Status: Acute (2) Bradycardia Code(s): R00.1 - BRADYCARDIA, UNSPECIFIED Status: Acute (3) Pulmonary emboli Code(s): I26.99 - OTHER PULMONARY EMBOLISM WITHOUT ACUTE COR PULMONALE Status : Acute Qualifiers: Pulmonary embolism type: other Chronicity: acute Acute cor pulmonale presence: without acute cor pulmonale Qualified Code(s): I26.99 - Other pulmonary embolism without acute cor pulmonale (4) Dyslipidemia Code(s): E78.5 - HYPERLIPIDEMIA, UNSPECIFIED Status: Chronic (5) HTN (hypertension) Code(s): I10 - ESSENTIAL (PRIMARY) HYPERTENSION Status: Chronic Qualifiers: Hypertension type: essential hypertension Qualified Code(s): I10 - Essential (primary) hypertension - Plan Plan: bradycardia with sinus pause - overnight on 09/30, responded to compressions, transcutaneous pacer in place ( not active), transferred to ccu - atropine PRN - cardiology consulted appreciate recs Acute on chronic HFpEF exacerbation - Last echo 08/2017 showed EF 55-60%, diastolic dysfunction, repeat is similar - Cardiology consulted appreciate recs - Monitor output with strict I/Os - HH diet with 1800 fluid restriction HTN - beta renaldo held, monitor and resume home meds as needed Hx of PE - eliquis held for poss pacemaker placement Code status: Full Diet: HH w/ fluid restriction VTE: SCD Dispo: monitor in ccu, eval need for pacemaker placement Addendum - Attending - Attending Attestation Date/Time: 09/30/18 3154 I personally evaluated the patient and discussed the management with Dr. Bolden. I agree with the History, Examination, Assessment and Plan documented above with any addition or exceptions noted below. Patient here with CHF exacerbation but currently appears euvolemic. She had long cardiac pause last night and had to be transferred to CCU for monitoring and potential for transcutaneous pacing. She is not requiring at this time. Awaiting further cardiology recs. Will plan to back off of diuresis today.
[2018-09-30] MEDS ORDERED: Sodium Chloride 0.9% 1,000 ML IV SCH (09:15)
--- NOTE | 2018-09-30 09:34 | PRG ---
DATE OF SERVICE: 09/30/2018 SUBJECTIVE: Ms. Pringle was moved to the intensive care unit last night after having a prolonged pause 8 seconds with a syncopal episode. She has pacing pads in place now. She is now in normal sinus rhythm. OBJECTIVE: VITAL SIGNS: Her blood pressure now is 90 systolic. LUNGS: Clear. CARDIAC: Normal S1, normal S2. ABDOMEN: Obese, nontender. ASSESSMENT: 1. Episodes of severe bradycardia. She has been off the beta-blockers for several days now, and apparently, she was only taking 25 mg of metoprolol. 2. History of pulmonary embolism years ago. She did receive a dose of Eliquis, but that has been over 48 hours now. PLAN: I have discussed pacemaker insertion. Discussed risks of bleeding, infection, lead dislodgement around the lung, blood around the heart, she understands and wished to proceed. Job ID: [id number]
--- NOTE | 2018-09-30 09:44 | CON ---
DATE OF CONSULTATION: HISTORY OF PRESENT ILLNESS: Zayda Pringle is an 83-year-old female, weight 72 kg, blood pressure 113/66, who came to the hospital with lower extremity swelling. Also had some leg pain. She has been in the hospital for several days. Yesterday, she developed bradycardia and shortness of breath. She was transferred to the ICU. She also has orthopnea and PND from [id number]. She has sleep apnea, but apparently did not wear a CPAP machine. The patient is quite deconditioned. PAST MEDICAL HISTORY: Pertinent for hypertension; breast cancer; COPD; asthma; uterine cancer; PE, long-term anticoagulation; and diastolic dysfunction. PAST SURGICAL HISTORY: Cholecystectomy, hysterectomy, mastectomy of both breast, back surgery, and leg surgery. SOCIAL HISTORY: Former smoker, quit 10 years ago, a pack a day for many years. ALLERGIES: IODINE, CEPHALOSPORIN. MEDICATIONS: 1. Protonix 40. 2. Breo 200. 3. Singulair 10, nebulizer. 4. Toprol-XL 25. 5. Atorvastatin 20. 6. Fish oil. 7. Losartan. 8. Eliquis 5 twice a day. 9. Ventolin inhaler. 10. Xanax. REVIEW OF SYSTEMS: Otherwise, 10-point negative. PHYSICAL EXAMINATION: GENERAL: She appears to be in no acute distress. Awake, alert, and responsive. VITAL SIGNS: Blood pressure this morning is 110/80, pulse 67, respirations 18, saturations are 90%. CHEST: No wheezing or crackles. CARDIAC: Normal S1 and S2. No gallops. ABDOMEN: No masses. IMAGING STUDIES: X-ray was clear. I see no acute infiltrates. IMPRESSION: 1. Diastolic dysfunction. 2. Severe bradycardia. 3. History of long-term pulmonary embolism. 4. Chronic obstructive pulmonary disease. 5. Asthma. . Job ID: [id number]
[2018-09-30] MEDS: Pantoprazole 40 MG GRANULES PACKET PO SCH (09:50)
[2018-09-30] MEDS: Montelukast Sodium 10 mg Tablet PO SCH (09:56)
[2018-09-30] MEDS: Pramipexole Di-HCl 1 MG TAB PO SCH ×2 (09:56→22:14)
[2018-09-30] MEDS: Fish Oil 1,000 MG CAP PO SCH (09:57)
[2018-09-30] MEDS: guaiFENesin ER 600 MG TAB PO SCH ×2 (09:57→22:14)
[2018-09-30] MEDS: Escitalopram Oxalate 20 mg Tablet PO SCH (09:57)
[2018-09-30] MEDS ORDERED: Potassium Chloride 20 MEQ TAB PO SCH (10:00)
[2018-09-30] MEDS: Spironolactone 25 MG TAB PO SCH (10:15)
[2018-09-30] MEDS ORDERED: Lidocaine 1% (PF) 30 ML VIAL ONE (14:04)
[2018-09-30] MEDS ORDERED: CEFAZOLIN 1 GM VIAL ONE (14:04)
[2018-09-30] MEDS ORDERED: Gentamicin 80 MG/2 ML VIAL ONE (14:04)
[2018-09-30] MEDS ORDERED: Clindamycin/D5W 600 mg/50 ml Premix Bag ONE (14:53)
[2018-09-30] MEDS ORDERED: Levofloxacin 500 mg/D5W 100 ml Premix Bag ONE (14:53)
[2018-09-30] MEDS ORDERED: Midazolam HCl 2 mg/2 ml Vial ONE (15:44)
--- NOTE | 2018-09-30 17:39 | RAD ---
PORTABLE AP CHEST X-RAY: 09/30/18 HISTORY: Post cardiac device placement. COMPARISON: 09/28/18. FINDINGS: There has been interval placement of a dural lead left subclavian cardiac pacemaking device. No pneum othorax or pleural effusion is seen on the left. There is persistent elevation of the right hemidiaph ragm with atelectasis at the right lung base. Metallic clip again overlies the right lung base. Vascu lar calcifications are seen in the thoracic aorta. There is linear atelectasis present in the region of the lingula. No other interval change. IMPRESSION: 1. Interval placement of a dual lead left subclavian cardiac pacemaking device without evidence of a pneumothorax or pleural effusion seen on the left. 2. Persistent elevation of the right hemidiaphragm with volume loss right lung base. POS: JENN
--- NOTE | 2018-09-30 18:38 | CCL ---
DATE OF PROCEDURE: 09/30/18 INDICATION FOR PROCEDURE: 83-year-old female with symptomatic bradycardia and significant pauses. Pauses are more than 8 second s and syncope. She was advised to undergo pacemaker insertion. She was taken to the cardiac [facility] where she underwent the procedure today without too much diffi culty or complications. She was implanted with a dual chamber pacemaker from [employer] with two screw -in leads. One in the atrium and one in the ventricle. She was implanted with an [place] MRI compatible device. The upper rate was set at 120 and the lower rate was set at 60. She was given 1 mg of IV bakari sed for conscious sedation. Throughout the procedure was monitored by an independent observer present for heart rate, blood pressure and O2 saturation. Total sedation time was 45 minutes.
[2018-09-30] MEDS: Atorvastatin Calcium 20 MG TAB PO SCH (22:14)
[2018-10-01 04:32] VITALS: BMI 44.4
--- NOTE | 2018-10-01 06:12 | PDOC.FM ---
- Subjective Subjective: Pt states she is doing great today stating that since her pacemaker placement yesterday she has not experienced any palpitations or any shortness of breath. She notes continued improvement in her lower extremity swelling as well. Denies CP, SOB, LH, or dizziness. - Objective Vital Signs & Weight: Vital Signs (12 hours) Temp Pulse Resp BP Pulse Ox 10/01/18 04:00 97.8 F 79 20 116/61 97 09/30/18 22:13 86 12 09/30/18 20:15 97.5 F L 93 18 106/54 L 95 09/30/18 18:46 82 12 98 Weight Admit Weight 114.033 kg Weight 113.7 kg Most Recent Monitor Data Heart Rate from ECG 93 NIBP 89/45 NIBP BP-Mean 59 Respiration from ECG 28 SpO2 97 I&O: 09/29/18 09/30/18 10/01/18 06:59 06:59 06:59 Intake Total 600 1080 466 Output Total 800 3600 650 Balance -200 -2520 -184 Result Diagrams: 09/28/18 11:10 09/30/18 03:21 Phys Exam - Physical Examination Constitutional: NAD Morbidly obese HEENT: PERRLA, moist MMs Neck: no JVD, full ROM Respiratory: no wheezing, no rales, no rhonchi, clear to auscultation bilateral Cardiovascular: RRR 4/6 holosystolic murmur Gastrointestinal: soft, non-tender, positive bowel sounds Musculoskeletal: pulses present, edema present (1-2+ pitting bilaterally) Neurological: non-focal, moves all 4 limbs Psychiatric: normal affect, A&O x 3 Skin: no rash, cap refill <2 seconds Dx/Plan (1) Acute exacerbation of congestive heart failure Code(s): I50.9 - HEART FAILURE, UNSPECIFIED Status: Acute (2) Noncompliance w/medication treatment due to intermit use of medication Code(s): Z91.14 - PATIENT'S OTHER NONCOMPLIANCE WITH MEDICATION REGIMEN Status : Acute (3) HTN (hypertension) Code(s): I10 - ESSENTIAL (PRIMARY) HYPERTENSION Status: Chronic Qualifiers: Hypertension type: essential hypertension Qualified Code(s): I10 - Essential (primary) hypertension (4) Sinus bradycardia Code(s): R00.1 - BRADYCARDIA, UNSPECIFIED Status: Acute - Plan Plan: Sinus bradycardia - Stopped eliquis for pacemaker placement - Telemetry showed continuous sinus bradycardia with pauses, asystole period , pacemaker placement 09/30 - Cardiology restarted pt's beta renaldo - Current rates range from 70-95bpm - Pt is currently medically stable, will await cardiology recs for further management Acute on chronic HFpEF exacerbation Recent medication noncompliance with diuretic Last echo 08/2017 showed EF 55-60%, diastolic dysfunction. - BNP similar to prior - Monitor output with strict I/Os - HH diet with 1800 fluid restriction - Echo ordered 09/27: EF 60-65%, 1/3 diastolic dysfunction, aortic stenosis Deconditioning Pt's daughter reports recent generalized deconditioning with decreased exercise tolerance and mobility starting prior to new worsening of her shortness of breath and orthopnea HTN - Beta renaldo held prior to procedure and restarted yesterday - Holding home Hyzaar - BP this am = 116/61 Hx of pulmonary embolism, on chronic anticoagulation - pt's eliquis was held for pacemaker placement yesterday - will wait for cardiology to resume it, likely 24hrs post procedure Condition: Stable Code status: Full Diet: HH w/ fluid restriction VTE: SCD Dispo: Admit to tele inpt following pacemaker placement yesterday, pts rate is now controlled
[2018-10-01] MEDS: Mometasone/Formoterol 120 PUFF INHALER INH SCH ×2 (07:28→19:27)
[2018-10-01] MEDS: Montelukast Sodium 10 mg Tablet PO SCH (09:08)
[2018-10-01] MEDS: Fish Oil 1,000 MG CAP PO SCH (09:08)
[2018-10-01] MEDS: Pramipexole Di-HCl 1 MG TAB PO SCH ×2 (09:08→20:31)
[2018-10-01] MEDS: guaiFENesin ER 600 MG TAB PO SCH ×2 (09:08→20:31)
[2018-10-01] MEDS: Pantoprazole 40 MG GRANULES PACKET PO SCH (09:09)
[2018-10-01] MEDS: Escitalopram Oxalate 20 mg Tablet PO SCH (09:09)
--- NOTE | 2018-10-01 09:48 | PRG ---
DATE OF SERVICE: 10/01/2018 SUBJECTIVE: This morning, the patient is better status post pacemaker for severe bradycardia. OBJECTIVE: VITAL SIGNS: Temperature 97, pulse 88, respiratory rate 20, sats 100%, blood pressure 107/59. CHEST: Decreased breath sounds. No wheezing. CARDIAC: Normal S1 and S2. No gallops. ABDOMEN: No masses. IMPRESSION: Respiratory failure, congestive heart failure, bradycardia, chronic obstructive pulmonary disease, advanced age, deconditioning. PLAN: She appears to have much improved. PT supportive care. Disposition as per primary care physician. X-ray shows the chronically elevated right hemidiaphragm. Job ID: [id number]
--- NOTE | 2018-10-01 11:07 | PRG ---
DATE OF SERVICE: 10/01/2018 Ms. Pringle had her pacemaker placed yesterday and feels much better. She also had a nice brisk diuresis from her IV Lasix during the last 12 to 24 hours. She is ambulating with assistance and clinically looks much improved. She will likely be ready for either rehab placement or discharge in a day or two. Job ID: [id number]
--- NOTE | 2018-10-01 14:43 | PRG ---
DATE OF SERVICE: 10/01/2018 SUBJECTIVE: Ms. Pringle is doing well. She feels much better since the pacemaker is inserted. No chest pain or pressure. OBJECTIVE: VITAL SIGNS: Blood pressure is on the low side, 100/57 and pulse 78. LUNGS: Clear. CARDIAC: Normal S1 and normal S2. ASSESSMENT: 1. Episodes of severe sinus bradycardia with a sinus arrest over 8 seconds. 2. Status post pacemaker insertion. 3. Diastolic congestive heart failure. PLAN: 1. Resume metoprolol that has been done. 2. Resume diuretics tomorrow. 3. The patient could be discharged at any time. The patient could be taken off telemetry in any time. Job ID: [id number]
[2018-10-01] MEDS: Atorvastatin Calcium 20 MG TAB PO SCH (20:31)
[2018-10-01] MEDS ORDERED: Apixaban 2.5 MG TAB PO SCH (21:00)
[2018-10-02 05:26] LABS: #Eosinphils 0.1 thou/uL (0.0-0.7); #Lymphocytes 0.9 thou/uL (1.20-3.40); #Monocytes 0.9 thou/uL (0.11-0.59); #Neutrophils 4.8 thou/uL (1.40-6.50); %Basophils 0.4 % (0.0-1.0); %Eosinophils 1.4 % (0.0-10.0); %Lymphocytes 13.2 % (21.0-51.0); %Monocytes 13.3 % (0.0-10.0); %Neutrophils 71.7 % (42.0-75.0); Hemoglobin 12.8 g/dL (12.0-16.0); Mean Corpuscular HGB CONC 32.7 g/dL (32.0-36.0); Mean Corpuscular Hemoglobin 30.1 pg (27.0-31.0); Mean Corpuscular Volume 92.1 fL (78.0-98.0); Mean Platelet Volume 7.9 fL (7.4-10.4); Platelet Count 157 thou/uL (130-400); RBC Distribution Width 14.9 % (11.5-14.5); Red Blood Cell (RBC) Count 4.26 mill/uL (4.20-5.40); White Blood Cell (WBC) Count 6.6 thou/uL (4.8-10.8)
[2018-10-02 05:48] LABS: Anion Gap 11 mmol/L (10-20); BUN (Urea Nitrogen) 18 mg/dL (9.8-20.1); Calc. Creatinine Clearance 110 mL/min (70-130); Calcium 9.3 mg/dL (7.8-10.44); Carbon Dioxide 33 mmol/L (23-31); Chloride 97 mmol/L (98-107); Estimated GFR-MDRD 80; Glucose 102 mg/dL (83-110); Potassium 4.3 mmol/L (3.5-5.1); Sodium 137 mmol/L (136-145)
--- NOTE | 2018-10-02 05:59 | PDOC.FM ---
- Subjective Subjective: No complaints this morning. No CP or SOB - Objective MAR Reviewed: Yes Vital Signs & Weight: Vital Signs (12 hours) Temp Pulse Resp BP Pulse Ox 10/02/18 04:00 98.1 F 88 18 138/69 92 L 10/02/18 02:24 87 12 10/01/18 22:11 12 10/01/18 20:24 100 10/01/18 19:19 83 16 91 L Weight Admit Weight 114.033 kg Weight 113.942 kg Most Recent Monitor Data Heart Rate from ECG 93 NIBP 89/45 NIBP BP-Mean 59 Respiration from ECG 28 SpO2 97 I&O: 09/30/18 10/01/18 10/02/18 06:59 06:59 06:59 Intake Total 5124 420 5098 Output Total 3600 1150 1300 Balance -2520 -284 140 Result Diagrams: 10/02/18 04:24 10/02/18 04:24 Phys Exam - Physical Examination Constitutional: NAD HEENT: moist MMs Neck: supple Respiratory: clear to auscultation bilateral Cardiovascular: RRR systolic murmur Gastrointestinal: soft, non-tender Musculoskeletal: pulses present, edema present 1+ edema Neurological: non-focal, moves all 4 limbs Lymphatic: no nodes Psychiatric: normal affect Skin: no rash Dx/Plan (1) Acute exacerbation of congestive heart failure Code(s): I50.9 - HEART FAILURE, UNSPECIFIED Status: Acute (2) Noncompliance w/medication treatment due to intermit use of medication Code(s): Z91.14 - PATIENT'S OTHER NONCOMPLIANCE WITH MEDICATION REGIMEN Status : Acute (3) HTN (hypertension) Code(s): I10 - ESSENTIAL (PRIMARY) HYPERTENSION Status: Chronic Qualifiers: Hypertension type: essential hypertension Qualified Code(s): I10 - Essential (primary) hypertension (4) Sinus bradycardia Code(s): R00.1 - BRADYCARDIA, UNSPECIFIED Status: Acute - Plan Plan: Sinus bradycardia - Stopped eliquis for pacemaker placement - Telemetry showed continuous sinus bradycardia with pauses, asystole period , pacemaker placement 09/30 - Current rates range from 70-90bpm - Tolerating Metoprolol well. - Pt is currently medically stable, will await cardiology recs for further management Acute on chronic HFpEF exacerbation Recent medication noncompliance with diuretic Last echo 08/2017 showed EF 55-60%, diastolic dysfunction. - BNP similar to prior - Monitor output with strict I/Os - HH LSO diet with fluid restriction 1800 - Echo ordered 09/27: EF 60-65%, 1/3 diastolic dysfunction, aortic stenosis Deconditioning Pt's daughter reports recent generalized deconditioning with decreased exercise tolerance and mobility starting prior to new worsening of her shortness of breath and orthopnea -PT/OT consulted HTN - On Metoprolol and Spironolactone - Holding home Hyzaar - BP this am = 116/61 Hx of pulmonary embolism, on chronic anticoagulation -Restart Eliquis tomorrow - Condition: Stable Code status: Full Diet: HH LSO with fluid restriction 1800 VTE: SCD Dispo: Will evaluate tele. Nimesh/pipo setting up inpt rehab.
[2018-10-02] MEDS: Mometasone/Formoterol 120 PUFF INHALER INH SCH (07:25)
[2018-10-02] MEDS ORDERED: Furosemide 80 MG TAB PO SCH (07:30)
[2018-10-02] MEDS ORDERED: Spironolactone 25 MG TAB PO SCH (08:00)
[2018-10-02] MEDS ORDERED: Potassium Chloride 20 MEQ TAB PO SCH (08:00)
[2018-10-02] MEDS: Pramipexole Di-HCl 1 MG TAB PO SCH (09:42)
[2018-10-02] MEDS: Escitalopram Oxalate 20 mg Tablet PO SCH (09:42)
[2018-10-02] MEDS: Montelukast Sodium 10 mg Tablet PO SCH (09:42)
[2018-10-02] MEDS: guaiFENesin ER 600 MG TAB PO SCH (09:42)
[2018-10-02] MEDS: Fish Oil 1,000 MG CAP PO SCH (09:42)
[2018-10-02] MEDS: Pantoprazole 40 MG GRANULES PACKET PO SCH (09:42)
--- NOTE | 2018-10-02 11:16 | PRG ---
DATE OF SERVICE: 10/02/2018 Ms. Pringle is pleasant, awake, alert, sitting in bed. She is continuing with a good diuresis and is back on metoprolol. We can restart her Eliquis in anticipation of possibly being discharged today or tomorrow. Job ID: [id number]
[2018-10-02 17:00] VITALS: BP 107/51; TEMP 97.6
--- NOTE | 2018-10-02 17:11 | PRG ---
DATE OF SERVICE: 10/02/2018 SUBJECTIVE: Zayda Pringle has no new complaints. She says she is feeling better. She says her swelling has gone down. OBJECTIVE: VITAL SIGNS: She is afebrile. Heart rate is in 80s, respiratory rate 16, oximetry is 95% on room air, blood pressure 111/56. LUNGS: Clear. HEART: Regular rhythm. ABDOMEN: Soft. LABORATORY DATA: White count 6.6, hemoglobin 12.8, platelets 157. Sodium 137, potassium 4.3, chloride 97, bicarb 33, BUN 18, creatinine 0.7. IMPRESSION: 1. Sinus bradycardia with sinus arrest over 8 seconds. 2. Status post pacemaker. 3. Diastolic heart failure with fluid retention. 4. Asthma, which is clinically stable. She will keep her followup appointments with me in the office. Job ID: [id number]
[2018-10-03] MEDS ORDERED: Apixaban 2.5 MG TAB PO SCH (09:00)
--- NOTE | 2018-10-05 04:58 | DIS ---
DATE OF ADMISSION: 09/28/2018 DATE OF DISCHARGE: 10/02/2018 RESIDENT: Jason Sinha DO ADMITTING ATTENDING: Lilly Smith MD DISCHARGE ATTENDING: Coy Sharp MD CONSULTS: 1. Cardiology, Dr. Delatorre. 2. Pulmonology, Dr. Dc. 3. Case Management, PT OT. PROCEDURES: 09/30/2018, dual-chamber pacemaker-[employer]; no complications. PRIMARY DIAGNOSES: Symptomatic bradycardia, acute exacerbation of congestive heart failure, noncompliance with medication treatment. SECONDARY DIAGNOSES: Hypertension, history of pulmonary embolism, and dyslipidemia. DISCHARGE MEDICATIONS: 1. Ventolin 2 puffs q.6 hours. 2. Atorvastatin 20 mg at bedtime. 3. Lexapro 20 mg daily. 4. Fish oil 1000 mg daily. 5. Breo one puff daily. 6. Losartan/hydrochlorothiazide 50 mg/12.5 mg half tab daily. 7. Singulair 10 mg daily. 8. Pantoprazole 40 mg daily. 9. Pramipexole 2 mg b.i.d. 10. Xanax 0.25 mg b.i.d. 11. Eliquis 2.5 mg b.i.d. 12. Aspirin 81 mg daily. 13. Lasix 40 mg b.i.d. 14. Mucinex 600 mg q.12 hours. 15. Ipratropium/albuterol 3 mL nebulizer q.4 hours p.r.n. 16. Metoprolol succinate 25 mg p.o. daily. 17. K-Dur 40 mEq p.o. daily. DISCONTINUED MEDICATIONS: Lasix 80 mg b.i.d. HOSPITAL COURSE: The patient is an 83-year-old female with history of CHF and medication noncompliance, who presented to the ED for increased lower extremity edema, shortness of breath, and orthopnea. She stated that she has been off her Lasix for 3 days. She presented due to inability to sleep in her recliner due to increasing orthopnea. The patient's daughter is a language specialist and coordinates her cardiac medical care, but was currently on vacation. In the ED, the patient was found to be bradycardic with heart rates ranging from 20s to 40 beats per minute, although she was asymptomatic during this time. She was seen by the language specialist, who felt that an admission was necessary to continue to monitor. She was admitted to telemetry and had her Lasix restarted at 40 mg b.i.d. The patient's metoprolol was held due to her bradycardia. The patient's daughter noted that in the past, she has had problems with medication noncompliance and taking too many medications accidentally. Cardiology felt that it was important to watch the patient for at least 3 days due to the possibility of metoprolol overdose and the need for washout. Over the next couple of days, the patient was found to have heart rates dropping into the 20s and had pauses as long as 9 seconds. The patient subsequently had asystole that lasted greater than 10 seconds and resulted in the patient receiving compression. Prism Inspector then decided to go for a pacemaker placement. The patient's Eliquis has been held since her admission for this expected intervention. She subsequently had pacemaker placed on 09/30/2018. She had no complications. Subsequent day, the patient stated that her shortness of breath was feeling much better. She also noted that her lower extremity edema had been gradually improving throughout her stay and felt like it was nearing her baseline. The patient had been seen by PT and OT throughout her stay, who felt that fci care following discharge would be in the patient's best interest. The patient and family agreed with this and the patient was subsequently discharged to [facility]. DISPOSITION: Stable. DISCHARGE INSTRUCTIONS: 1. Location: [facility]. 2. Diet: Heart healthy. 3. Activity: As tolerated. 4. Followup: PCP, Dr. Muir, within 7 days, Cardiology, Dr. Abdi Redd, as recommended. Job ID: [id number]
--- NOTE | 2018-10-05 15:43 | EKG ---
Test Reason : PRIYA LEG SWELLING Blood Pressure : / mmHG Vent. Rate : 063 BPM Atrial Rate : 063 BPM P-R Int : 230 ms QRS Dur : 098 ms QT Int : 428 ms P-R-T Axes : 052 026 041 degrees QTc Int : 437 ms Sinus rhythm with 1st degree A-V block Otherwise normal ECG Confirmed by SONDRA Celestin, DANN ([id number]), editor newspaper MATT ADORNO ([id number] on 10/05/2018 3:43:21 PM Referred By: Confirmed By:DANN AMARO M.D.
--- NOTE | 2018-10-05 15:43 | EKG ---
Test Reason : Blood Pressure : / mmHG Vent. Rate : 043 BPM Atrial Rate : 043 BPM P-R Int : 222 ms QRS Dur : 102 ms QT Int : 462 ms P-R-T Axes : 029 002 015 degrees QTc Int : 390 ms Marked sinus bradycardia with sinus arrhythmia with 1st degree A-V block Abnormal ECG Confirmed by DANN AMARO M.D. ([id number]), editor house organ MATT ADORNO ([id number]) on 10/05/2018 3:43:23 PM Referred By: Confirmed By:DANN AMARO M.D.
== END 2018-10-02 18:08 | DRG 242 ==
LOC: ERS 10:23 → ERHOLD 14:12 → 2NO 17:27 → CCU 09-30 02:23 → 2NO 09-30 16:56
PROVIDERS: ADMIT Family Medicine; ATTEND Family Medicine
PROC: 0JH606Z Insertion of Pacemaker, Dual Chamber into Chest Subcutaneous Tissue and Fascia, Open Approach (ICD-10-PCS; principal; 2018-09-30)
PROC: 02H63JZ Insertion of Pacemaker Lead into Right Atrium, Percutaneous Approach (ICD-10-PCS; 2018-09-30)
PROC: 02HK3JZ Insertion of Pacemaker Lead into Right Ventricle, Percutaneous Approach (ICD-10-PCS; 2018-09-30)
DX: I49.5 Sick sinus syndrome (principal); I50.33 Acute on chronic diastolic (congestive) heart failure; Z68.41 Body mass index [BMI] 40.0-44.9, adult; E66.01 Morbid (severe) obesity due to excess calories; Z91.14 Patient's other noncompliance with medication regimen; I11.0 Hypertensive heart disease with heart failure; J44.9 Chronic obstructive pulmonary disease, unspecified; E78.5 Hyperlipidemia, unspecified; Z86.711 Personal history of pulmonary embolism; Z79.01 Long term (current) use of anticoagulants; Z85.3 Personal history of malignant neoplasm of breast; Z85.42 Personal history of malignant neoplasm of other parts of uterus; Z90.49 Acquired absence of other specified parts of digestive tract; Z90.710 Acquired absence of both cervix and uterus; Z90.13 Acquired absence of bilateral breasts and nipples; Z87.891 Personal history of nicotine dependence; Z88.1 Allergy status to other antibiotic agents; Z91.041 Radiographic dye allergy status; Z79.899 Other long term (current) drug therapy
CPT/HCPCS: 33208; 36415; 71045; 76942; 80048; 80053; 83880; 84484; 85025; 93005; 93010; 93306; 93798; 94640; 94760; 96374; 99152; 99153; C1785; C1898; J0690; J1580; J1940; J1956; J2001; J2250; J3370; J3490; J7620

== ENCOUNTER 2018-11-22 13:33 | Outpatient (CLI) | payer MEDICARE | END 2018-11-22 13:34 | disposition home or self-care (01) | LOC: ULT 13:33 | PROVIDERS: ATTEND Internal Medicine | DX: I08.3 Combined rheumatic disorders of mitral, aortic and tricuspid valves (principal) | CPT/HCPCS: 93306 ==

== ENCOUNTER 2019-02-14 05:00 | Emergency (ER) | payer MEDICARE ==
[2019-02-14] MEDS ORDERED: Albuterol Sulfate 2.5 mg/0.5 ml Neb ONE (05:22)
[2019-02-14] MEDS ORDERED: Albuterol Sulfate 2.5 mg/3 ml Neb ONE (05:22)
[2019-02-14] MEDS ORDERED: predniSONE 20 MG TAB ONE (05:54)
--- NOTE | 2019-02-14 09:21 | RAD ---
1 VIEW CHEST: Date: 02/14/19 COMPARISON: 09/30/18. HISTORY: Cough. FINDINGS: Atherosclerosis and slight elongation of the aorta. Normal cardiac silhouette. Pulmonary vessels and hilum are normal. Costophrenic angles are clear. Stable elevation of the right hemidiaphragm. Chronic changes in the lung parenchyma, without suspicious masses or consolidation. No pneumothorax. Stable left-sided transvenous pacemaker. IMPRESSION: Chronic changes. Atherosclerosis. POS: CET
== END 2019-02-14 06:01 | disposition home or self-care (01) ==
LOC: ERS 05:00
DX: J45.901 Unspecified asthma with (acute) exacerbation (principal); J44.9 Chronic obstructive pulmonary disease, unspecified; J06.9 Acute upper respiratory infection, unspecified; E78.5 Hyperlipidemia, unspecified; I10 Essential (primary) hypertension; F41.9 Anxiety disorder, unspecified; F32.9 Major depressive disorder, single episode, unspecified; Z79.899 Other long term (current) drug therapy
CPT/HCPCS: 71045; 94640; J7512; J7611; J7620

== ENCOUNTER 2019-05-10 10:03 | Inpatient (IN) | payer MEDICARE ==
[2019-05-10 11:27] LABS: #Eosinphils 0.1 thou/uL (0.0-0.7); #Lymphocytes 0.9 thou/uL (1.20-3.40); #Monocytes 1.6 thou/uL (0.11-0.59); #Neutrophils 14.4 thou/uL (1.40-6.50); %Basophils 0.2 % (0.0-1.0); %Eosinophils 0.4 % (0.0-10.0); %Monocytes 9.5 % (0.0-10.0); Hemoglobin 15.1 g/dL (12.0-16.0); Mean Corpuscular HGB CONC 33.4 g/dL (32.0-36.0); Mean Corpuscular Hemoglobin 31.4 pg (27.0-31.0); Mean Platelet Volume 7.7 fL (7.4-10.4); Platelet Count 260 thou/uL (130-400); RBC Distribution Width 14.3 % (11.5-14.5); Red Blood Cell (RBC) Count 4.81 mill/uL (4.20-5.40); White Blood Cell (WBC) Count 16.9 thou/uL (4.8-10.8)
--- NOTE | 2019-05-10 11:31 | CT ---
Head CT without contrast 05/10/2019: COMPARISON: 04/01/2018 HISTORY: Injury TECHNIQUE: Axial CT imaging at 5 mm intervals from vertex through skull base without contrast FINDINGS: The imaged paranasal sinuses and mastoid air cells are well-aerated. No displaced calvarial fracture. No intracranial hemorrhage, midline shift, mass effect, or ventricular enlargement. IMPRESSION: No acute findings.
--- NOTE | 2019-05-10 11:43 | CT ---
Exam: CT LUMBAR SPINE WITHOUT CONTRAST: COMPARISON: 09/23/2016. HISTORY: Low back pain, onset Thursday morning. Patient fell while trying to get into wheelchair on Thu day. FINDINGS: Visualized solid organs are unremarkable. There is atherosclerosis of a nonaneurysmal aorta. There is atrophy of the posterior spinous rectus muscles. There is symmetric attenuation of the psoas muscles. There is diffuse bone demineralization. Mild degenerative changes in both sacroiliac joints. There ap pears to be slight angulation and callus formation at the S1-S2 level suggesting a remote fracture. Findings are similar to the previous examination. There do appear to be mild osteoporotic fractures a long the superior aspect of L1, superior and inferior aspect of L3 and the superior aspect of L4. Sclerosis favors a chronic process. There is no evidence of spondylolysis. There appears to be 3.6 mm of retrolisthesis of L1 upon L2 and 3.1 mm of retrolisthesis of L2 upon L3. There appears to be distraction of the T11 vertebral body with abnormal soft tissue attenuation repla cing the majority of the T11 vertebral body. Findings may represent a pathologic fracture. Limited evaluation of the contents of the central spinal canal and neural foramina due to technique. T10-T11: Mild to moderate central canal stenosis T11-T12: Moderate to severe central canal stenosis secondary to disc material and component of retrop ulsion. T12-L1: Vacuum disc phenomenon. At least mild central canal stenosis and mild to moderate bilateral f oraminal narrowing. L1-L2: Mild central canal stenosis. Moderate bilateral foraminal narrowing. L2-L3: Moderate central canal stenosis. Moderate to severe bilateral foraminal narrowing. L3-L4: Mild central canal stenosis. Moderate to severe bilateral foraminal narrowing. L4-L5: Severe central canal stenosis. Moderate to severe bilateral foraminal narrowing. L5-S1: No significant central canal stenosis. Moderate to severe bilateral neural foraminal narrowing . IMPRESSION: 1. Probable pathologic fracture at the T11 vertebral body level. There is abnormal soft tissue attenu ation replacing the majority of the T11 vertebral body. 2. Diffuse bone demineralization with probable osteoporotic fractures involving the lumbar spine and sacrum as described above. Sacral fractures are also felt to be chronic. Transcribed Date/Time: 05/10/2019 12:06 PM
[2019-05-10 11:49] LABS: ALT (SGPT) 64 U/L (8-55); AST (SGOT) 142 U/L (5-34); Albumin 3.9 g/dL (3.4-4.8); Alkaline Phosphatase 143 U/L (40-110); Anion Gap 18 mmol/L (10-20); BUN (Urea Nitrogen) 74 mg/dL (9.8-20.1); Bilirubin, Total 0.9 mg/dL (0.2-1.2); Calc. Creatinine Clearance 0 mL/min (70-130); Calcium 9.7 mg/dL (7.8-10.44); Carbon Dioxide 28 mmol/L (23-31); Chloride 93 mmol/L (98-107); Estimated GFR-MDRD 31; Glucose 160 mg/dL (83-110); Potassium 3.9 mmol/L (3.5-5.1); Protein, Total 6.9 g/dL (6.0-8.3); Sodium 135 mmol/L (136-145)
--- NOTE | 2019-05-10 11:51 | CT ---
CT Pelvis WO Con History: Injury. Fall Comparison: None. Findings: Please see lumbar spine CT for findings of the lumbar spine. There is healing insufficiency fracture of the sacrum on the right S1 zone 1. Age-indeterminate transversely oriented fracture of the sacrum S2 involving zone 3. No SI joint widening. The obturator rings are intact. The femoral heads and necks are intact. The fem oral heads and necks are intact. High-grade posterior paraspinal muscle atrophy. Fat-containing anterior right lateral ventral hernia. Asymmetric atrophy right piriformis muscle. Mild atrophy of the gluteus musculature. Impression: 1. Age-indeterminate S2 zone 3 transversely oriented fracture. 2. Intact femoral heads and necks. 3. Insufficiency fracture, healing, right S1 zone 1.
[2019-05-10 12:55] LABS: Bilirubin Negative (Negative); Blood, Urine 3+ (Negative); Clarity Clear (Clear); Glucose, Urine (Dipstick) Normal (Negative); Leukocyte Negative Leu/uL (Negative); Nitrite Negative (Negative); Protein, Urine (Dipstick) 30 mg/dL (Neg-Trace); RBC/HPF None Seen HPF (0-3); Squamous Epithelial 0-3 HPF (0-3); Urobilinogen Normal mg/dL (Less than 2); WBC/HPF 0-3 HPF (0-3)
[2019-05-10 12:58] LABS: Bacteria/HPF None Seen HPF (None Seen)
--- NOTE | 2019-05-10 14:17 | RAD ---
Portable frontal chest radiograph: 05/10/2019 COMPARISON: 02/14/2019 HISTORY: Fall, trauma, pain FINDINGS: There is elevation of the right hemidiaphragm, unchanged when compared to prior exam. Stabl e dual lead transvenous pacing device. No pneumothorax or pleural fluid. No focal consolidation or alveolar edema. IMPRESSION: Stable appearance of the chest-no acute findings.
[2019-05-10 14:21] LABS: CK (CPK) 2733 U/L (29-168); Magnesium 2.7 mg/dL (1.6-2.6); Phosphorus 4.6 mg/dL (2.3-4.7)
[2019-05-10] MEDS ORDERED: Magnevist 469MG/ML 20 ML VIAL ONE ×2 (14:42)
[2019-05-10 15:00] LABS: CKMB 31.4 ng/mL (0-6.6)
[2019-05-10] MEDS ORDERED: Ondansetron ODT 4 MG TAB PO PRN (15:48)
[2019-05-10] MEDS ORDERED: Ondansetron PF 4 MG/2 ML Vial IVP PRN (15:48)
[2019-05-10] MEDS ORDERED: hydrALAZINE 20 MG/ML VIAL SLOW IVP PRN (15:48)
[2019-05-10] MEDS ORDERED: Morphine 2 MG/ML SYRINGE SLOW IVP PRN (15:48)
[2019-05-10] MEDS ORDERED: Dextrose 50% Abboject 50 ML SYRINGE SLOW IVP PRN (15:48)
[2019-05-10] MEDS ORDERED: Morphine 4 MG/ML VIAL SLOW IVP PRN (15:48)
[2019-05-10] MEDS ORDERED: Dextrose 5% in Water 1,000 ML IV PRN (15:48)
[2019-05-10] MEDS: Sodium Chloride 0.9% 1,000 ML IV SCH (16:10)
[2019-05-10 17:26] LABS: CKMB 26.4 ng/mL (0-6.6); Critical Call CKMB RESULT DECREASING
[2019-05-10 19:36] VITALS: BMI 40.2
[2019-05-10 19:58] LABS: Troponin I 0.105 ng/mL (< 0.028)
[2019-05-10] MEDS ORDERED: traMADol HCl 50 MG TAB PO PRN ×2 (20:40)
[2019-05-10] MEDS ORDERED: PROVENTIL INHALER 6.7 G (200 INHALATIONS) INH PRN (20:40)
[2019-05-10] MEDS: Cyclobenzaprine 10 MG TAB PO PRN (21:08)
[2019-05-10] MEDS: Gabapentin 100 MG CAP PO SCH (21:09)
[2019-05-10] MEDS ORDERED: Acetaminophen 500 MG TAB PO SCH (23:59)
--- NOTE | 2019-05-11 00:21 | CON ---
DATE OF CONSULTATION: 05/10/2019 This is Tawny Zimmer PA-C dictating a report for Daniele Decker MD. HISTORY OF PRESENT ILLNESS: The patient is an 83-year-old female with a past medical history of hypertension, hyperlipidemia, history of prior breast cancer last treated in 2011, COPD, pacemaker, who presented to the emergency department for evaluation of increased back pain and bilateral leg weakness after a fall on Thursday. The patient reports that she was visiting the lab to get her blood work done. When she sat back into her wheelchair, she missed the wheelchair and landed on her bottom. Following this event, she had progressive increase in back pain and some increased heaviness in both of her legs. She normally walks with a walker for short distances and only uses wheelchair when going along long distances or getting out of the house. She is having difficulty using her walker secondary to bilateral leg weakness. She denies any sensation changes, bowel or bladder issues. She was brought to the emergency department, where a noncontrast CT of the lumbar spine was done which was notable for a T11 burst fracture with moderate retropulsion, which appears to be likely due to bony fragments as well as questionable invasion of this level with soft tissue abnormality. Radiologist for possible pathologic fracture and patient does have a history of remote breast cancer. We attempted to get MRI of the thoracic and lumbar spine. However, the patient has a known pacemaker and did not initially have the card. We have since obtained the pacemaker card, which shows it is an MRI-conditional pacemaker. PAST MEDICAL HISTORY: Hypertension, hyperlipidemia, history of malignancy primary to the right breast as well as prior uterine cancer, COPD, pacemaker. PAST SURGICAL HISTORY: Cholecystectomy, hysterectomy,pacemaker. SOCIAL HISTORY: The patient lives at home. She does not smoke, drink, or use any drugs. She is a former smoker. CURRENT MEDICATION LIST: 1. Eliquis 5 mg one tablet p.o. b.i.d. 2. Atorvastatin 20 mg one tablet p.o. daily. 3. Escitalopram 20 mg one tablet p.o. daily. 4. Alendronate 70 mg one tablet p.o. daily. 5. Aspirin 325 mg one tablet p.o. daily. 6. Pramipexole 1 mg two tabs p.o. b.i.d. 7. Prilosec 10 mg one tablet p.o. daily. 8. Metoprolol 50 mg one tablet p.o. daily. 9. Anastrozole 1 mg one tablet p.o. daily. PHYSICAL EXAMINATION: VITAL SIGNS: Temp is 97.6, pulse is 85, respiration is 16, the patient is 94% on 2 L nasal cannula, BP is 136/76. CONSTITUTIONAL: Awake, alert, in no acute distress. HEENT: Head, normocephalic and atraumatic. Eyes, PERRLA. Extraocular movements intact. ENT: Oral mucosa is pink, intact, and moist. She has normal voice. NECK: Nontender, not appear to have any meningismus or nuchal rigidity. CARDIOPULMONARY: Regular rate and rhythm. Symmetric chest expansion. No evidence of dyspnea. MUSCULOSKELETAL: She has free active range of motion of the upper extremities. No focal motor weakness in the upper extremities and the lower extremities. Sensation is intact to light touch. She does have some weakness proximally when attempting to flex at the knees or lift the legs off the bed. She appears to have good strength in legs distally, particularly plantar and flexion bilaterally. She is somewhat hyperreflexive over the bilateral knee jerk reflexes. NEUROLOGIC: A and O x4. She is somewhat weak in the lower extremities particularly in the proximal bilateral lower extremities. ASSESSMENT AND PLAN: This is an 83-year-old female with mechanical fall on Thursday, with fracture at T11 but also soft tissue abnormality of the bone not completely visualized on CT. There is concern for possible underlying mass with pathologic fx. We will attempt to get MRI of the lumbar and thoracic spine with and without contrast for further evaluation once pacemaker rep is available. The patient has been fitted with a OmnireliantO clamshell brace, which she should wear at all times. When she has fitted the brace, we will also get physical therapy and begin to mobilize her but only in the brace. I have discussed the plan with Dr. Decker, who is in agreement. Job ID: [id number] [id number]
--- NOTE | 2019-05-11 02:13 | HP ---
This is Ceci Cole NP dictating a report for Colten Enamorado MD. CONSULTS: Neurosurgery, Dr. Decker. CHIEF COMPLAINT: Ground level fall. HISTORY OF PRESENT ILLNESS: This is an 83-year-old female who lives at home with a sales and service advisor. The patient has a significant past medical history of diastolic dysfunction with preserved ejection fraction, recent pacemaker placement; history of pulmonary embolisms, on long-term Eliquis; COPD; chronic pedal edema. The patient reports falling as she was trying to get in her wheelchair. The patient was at home alone when this happened. The patient denies feeling weak, dizzy, short of breath, or having any chest pain prior to falling. The patient denies hitting her head. The patient was found the next day by her sales and service advisor lying on the ground. The patient was unable to get herself up off the ground and back into her wheelchair. The patient reported some low back pain. The patient continued to have low back pain and her sales and service advisor noticed that she was not able to transition herself from wheelchair to bed. The patient was brought into the emergency room for evaluation by her sales and service advisor by private vehicle. The patient was evaluated and found to have a T11 fracture with retropulsion. The patient denies any numbness or tingling to any extremities. Neurosurgery was consulted and a TLSO clamshell was ordered for all times. Trauma Service was asked to admit the patient. The patient and caregiver report a rash to her chest and abdomen that started earlier this morning. The patient reports that she got a similar rash whenever she had her pacemaker placed in the research laboratory specialist several months ago. The patient denies any pain or itching. Nursing staff reports that the redness has increased some since she has arrived in the emergency room. PAST MEDICAL HISTORY: Diastolic dysfunction, COPD, hypertension, hyperlipidemia, lower extremity edema, pacemaker placement, breast cancer, uterine cancer. PAST SURGICAL HISTORY: Cholecystectomy, hysterectomy, bilateral mastectomy, spinal surgery, venous ablation, pacemaker placement. SOCIAL HISTORY: Previous smoker, quit 50 years ago, no alcohol use, no illicit drug use. ALLERGIES: IODINE, ADHESIVE TAPE, CEPHALOSPORINS. CURRENT MEDICATIONS: 1. Acetaminophen 650 mg p.o. q.4 hours. 2. Diamox 250 mg p.o. daily. 3. Ventolin inhaler 2 puffs q.6 hours. 4. Eliquis 5 mg p.o. b.i.d. 5. Vitamin C 250 mg p.o. daily. 6. Bumex 2 mg p.o. daily. 7. Wellbutrin XL 300 mg p.o. daily. 8. Calcium 500 mg p.o. daily. 9. Lexapro 20 mg p.o. daily. 10. Breo Ellipta inhaler. 11. Mucinex 600 mg q.12 hours. 12. DuoNeb q.4 hours. 13. Singulair 10 mg p.o. daily. 14. Multivitamins p.o. daily. 15. Protonix 40 mg p.o. daily. 16. K-Dur 40 mEq p.o. daily. 17. Spironolactone 50 mg p.o. daily. 18. Pramipexole 10 mg p.o. daily. REVIEW OF SYSTEMS: A 10-point review of systems is negative unless otherwise indicated in the above HPI. OBJECTIVE: VITAL SIGNS: Temperature 97.6, pulse 84, respirations 16, SpO2 of 96% on room air, blood pressure 136/76. GENERAL: Elderly female, awake, alert, no distress. HEENT: Head is atraumatic and normocephalic. Pupils are equal bilateral, extraocular muscles are intact, pupils equal bilateral, no cervical spine tenderness, trachea is midline. RESPIRATORY: Equal chest rise and fall, bilateral breath sounds clear, no wheezing, rales, or rhonchi, prolonged expiratory phase. CARDIOVASCULAR: Regular rate, regular rhythm, 3/6 systolic murmur. ABDOMEN: Soft, nontender, nondistended, active bowel sounds, no peritoneal signs. EXTREMITIES: Moves all extremities, distal pulses 2+, strength 5/5 in all extremities, sensation intact, 2+ pitting pedal edema. PELVIS: Stable. NEUROLOGIC: GCS 15, no focal deficits. Cranial nerves intact. SKIN: Macular rash varying in diameter from 1 to 3 cm, flat appearing, lan-red appearing, bilateral arms, abdomen, chest, bilateral thighs with healthy-looking skin intervening. LABORATORY DATA: WBC 16.9, RBC 4.81, hemoglobin 15.1, hematocrit 45.3, platelets 260. Sodium 135, potassium 3.9, chloride 93, carbon dioxide 20, anion gap 18, BUN 74, creatinine 1.59, estimated GFR 31, glucose 160, calcium 9.7, phosphorus 4.6, magnesium 2.7. AST 142; ALT 64; alkaline phos 143; CK 2733, repeat 2231; CK-MB 31.4, repeat 26.4; troponin I 0.144, repeat 0.100. BNP 149.9. Serum total protein 6.9, albumin 3.9. Urinalysis is negative for wbc's, negative nitrites, negative bacteria. DIAGNOSTICS: 1. Brain CT; impression, no intracranial hemorrhage. 2. Lumbar spine CT; impression, probable pathologic fracture at the T11 vertebral body level. Abnormal soft tissue attenuation replacing the majority of the T11 vertebral body. Diffuse bone demineralization with probable osteoporotic fractures involving the lumbar spine and sacrum. Sacral fractures also felt to be chronic. 3. Pelvis CT; impression, intact femoral heads and necks, insufficiency fracture healing, right S1, zone 1, age indeterminate S2, zone 3 transversely oriented fracture. 4. Chest x-ray; impression, stable appearance of chest, no acute findings. There is elevation of the right hemidiaphragm. ASSESSMENT: 1. Status post ground level fall with delayed presentation. 2. T11 vertebral body fracture with retropulsion. 3. Chronic sacral fractures. 4. Hyponatremia. 5. Acute on chronic kidney injury, stage 3. 6. Morbilliform rash, unknown cause. 7. History of diastolic dysfunction, hypertension, chronic obstructive pulmonary disease, chronic anticoagulation use, pulmonary embolisms, pacemaker placement, dual chamber. PLAN: The patient will be on bedrest until fitted TLSO clamshell. The patient is to wear TLSO clamshell at all times. We will have Physical and Occupational Therapy work with patient once our TLSO is in place. Neurosurgery plans to obtain an MRI. We will gently hydrate the patient with normal saline 100 mL an hour. We will place the patient on a heart healthy diet. We will place the patient on a pain regimen. We will repeat labs in the morning. The patient's elevated CK and liver enzymes are likely due to prolonged downtime. Patient's daughter is concerned the patient may have Lewy body dementia and has been trying to get the patient in to see Neuropsych. We will place a Neurology consult. The plan has been discussed with the attending who agrees. Job ID: [id number]
[2019-05-11] MEDS: Morphine 2 MG/ML SYRINGE SLOW IVP PRN ×3 (02:31→08:18)
[2019-05-11] MEDS: Sodium Chloride 0.9% 1,000 ML IV SCH (02:35)
--- NOTE | 2019-05-11 02:44 | PRG ---
DATE OF SERVICE: 05/10/2019 SUBJECTIVE: The patient was seen this evening during rounds. She was sitting up in bed with clamshell TLSO in place. She reported that she was having some pain and was hungry. Additional pain medication and a sandwich were provided to the patient by Nursing. OBJECTIVE: VITAL SIGNS: Temperature 97.5, pulse 79, respirations 18, oxygen saturation 100% on 1.5 L nasal cannula, blood pressure 124/79. GENERAL: Well-appearing elderly female, sitting up in bed with no signs of acute distress. PULMONARY: Equal chest rise and fall. No signs of acute respiratory distress. EXTREMITIES: Gross motor and sensation is intact. NEUROLOGIC: GCS is 15. No focal neurological deficits. ASSESSMENT: 1. Status post ground level fall, on Eliquis. 2. T11 fracture with retropulsion. 3. Right lateral thigh abrasion. 4. Acute hyponatremia. 5. Cbktr-om-wlwozzm kidney disease. 6. History of chronic sacral fracture, congestive heart failure with diastolic dysfunction, pacemaker, hypertension, pulmonary embolism, dyslipidemia, chronic obstructive pulmonary disease, breast and uterine cancer, bilateral mastectomies, osteoporosis, and bilateral lower extremity venous insufficiency. PLAN: Continue current diet and pain regimen. Continue IV fluids overnight. We will discontinue them likely in the morning after a repeat blood work. We will restart her home medications as clinically indicated. We will hold her diuretics as she was dehydrated upon arrival with [id number] kidney injury. Clamshell TLSO at all times, we will follow that up. We will complete an MRI of the T and L-spine in the morning. The patient has a pacemaker and the fiscal technician reported they will not complete the MRI until [employer] is able to tell them that the pacemaker is MRI compatible. The patient will start working with Physical and Occupational Therapy and will likely need placement at a rehab facility. Job ID: [id number]
[2019-05-11] MEDS ORDERED: Acetaminophen/Codeine 30-300mg Tablet PO PRN (03:11)
[2019-05-11] MEDS: Acetaminophen/Codeine 30-300mg Tablet PO PRN ×2 (03:20→14:22)
[2019-05-11] MEDS: Acetaminophen 325 MG TAB PO SCH ×4 (05:16→23:55)
[2019-05-11 05:48] LABS: #Eosinphils 0.1 thou/uL (0.0-0.7); #Lymphocytes 0.7 thou/uL (1.20-3.40); #Monocytes 1.2 thou/uL (0.11-0.59); #Neutrophils 8.3 thou/uL (1.40-6.50); %Eosinophils 0.8 % (0.0-10.0); %Lymphocytes 6.7 % (21.0-51.0); %Monocytes 11.6 % (0.0-10.0); %Neutrophils 80.9 % (42.0-75.0); Hemoglobin 13.2 g/dL (12.0-16.0); Mean Corpuscular HGB CONC 32.3 g/dL (32.0-36.0); Mean Corpuscular Hemoglobin 30.6 pg (27.0-31.0); Mean Corpuscular Volume 94.9 fL (78.0-98.0); Mean Platelet Volume 7.9 fL (7.4-10.4); Platelet Count 217 thou/uL (130-400); RBC Distribution Width 14.1 % (11.5-14.5); White Blood Cell (WBC) Count 10.3 thou/uL (4.8-10.8)
[2019-05-11 06:12] LABS: Anion Gap 12 mmol/L (10-20); BUN (Urea Nitrogen) 56 mg/dL (9.8-20.1); Calc. Creatinine Clearance 62 mL/min (70-130); Calcium 8.6 mg/dL (7.8-10.44); Carbon Dioxide 31 mmol/L (23-31); Chloride 96 mmol/L (98-107); Estimated GFR-MDRD 52; Glucose 105 mg/dL (83-110); Magnesium 2.5 mg/dL (1.6-2.6); Potassium 3.3 mmol/L (3.5-5.1); Sodium 136 mmol/L (136-145)
[2019-05-11 06:14] LABS: CK (CPK) 951 U/L (29-168); Phosphorus 3.5 mg/dL (2.3-4.7)
[2019-05-11] MEDS: Mometasone/Formoterol 120 PUFF INHALER INH SCH ×2 (07:23→19:34)
[2019-05-11] MEDS ORDERED: Potassium Chloride 40 MEQ in Premix Bag 1 BAG IVPB SCH (07:45)
[2019-05-11] MEDS: Cyclobenzaprine 10 MG TAB PO PRN ×2 (08:33→20:07)
--- NOTE | 2019-05-11 08:50 | PRG ---
DATE OF SERVICE: 05/11/2019 The patient is seen and examined. I agree with Tawny Knox' evaluation on 05/10/2019. The patient is an 83-year-old woman, who fell 1 day prior to admission, landing on her buttocks. She then sustained immediate back pain and since that time has had a feeling of leg heaviness and weakness. The patient then presented to medical attention for further evaluation. The patient generally uses a walker and a wheelchair to get around prior to this. She has a history of both breast cancer and uterine cancer and also has significant cardiovascular disease with a pacemaker, COPD, and on Eliquis. CT scan reveals a T11 burst fracture with possibility of pathologic lesion of the T11 vertebral body. IMPRESSION AND PLAN: The patient will need MRI scan of the thoracic and lumbar spines. We will include the cervical spine given some vague arm complaints. She is not a realistic surgical candidate, but it would be good to define the lesion at T11 to comp with the best treatment strategy. Discussed with the patient. We will continue TLSO bracing for now and hold Nettie. Job ID: [id number]
[2019-05-11] MEDS ORDERED: Prevnar 13-Val Conj/PF 0.5 ML SYRINGE IM ONE (09:00)
[2019-05-11] MEDS: Pantoprazole 40 MG GRANULES PACKET PO SCH (09:20)
[2019-05-11] MEDS: Acetaminophen/Codeine 30-300mg Tablet PO SCH ×4 (09:20→23:55)
[2019-05-11] MEDS: Montelukast Sodium 10 mg Tablet PO SCH (09:22)
[2019-05-11] MEDS: Bupropion 150 MG XL TAB PO SCH (09:22)
[2019-05-11] MEDS: Escitalopram Oxalate 20 mg Tablet PO SCH (09:22)
[2019-05-11] MEDS: Gabapentin 100 MG CAP PO SCH ×3 (09:23→19:58)
[2019-05-11] MEDS: Pramipexole Di-HCl 1 MG TAB PO SCH ×2 (09:23→19:58)
--- NOTE | 2019-05-11 12:13 | MRI ---
MRI of thecervical spine with and without contrast: 05/11/2019 COMPARISON:None available HISTORY:Severe back pain with bilateral leg weakness, recent fall TECHNIQUE: Multiplanar multisequence MR imaging of thecervical spine with and without contrast Findings:The sagittal STIR imaging demonstrates no focal area of osseous marrow edema. There is moderate degenerative change at the atlantoaxial interspace. The craniocervical junction and the cervicothoracic junction appear intact. C2-3: There is disc space narrowing and disc desiccation with mild disc bulge and mild central canal stenosis. There is facet and uncovertebral osteophyte formation on the left with mild left neural foraminal stenosis. No significant right neural foraminal stenosis. C3-4: There is disc space narrowing with disc desiccation and mild disc bulge partially effacing the ventral thecal sac and causing mild central canal stenosis. Facet and uncovertebral osteophyte formation noted bilaterally with moderate right and mild left neural foraminal stenosis. C4-5: There is disc space narrowing with disc desiccation and degenerative endplate change. Anterior osteophyte formation noted. Disc osteophyte complex present with partial effacement of the ventral thecal sac and mild central canal stenosis. Bilateral facet and uncovertebral osteophyte formation le ads to moderate/severe bilateral neural foraminal stenosis. C5-6: There is disc space narrowing with disc desiccation and degenerative endplate change. Mild disc bulge partially effaces ventral thecal sac and leads to mild central canal stenosis. Bilateral facet and uncovertebral osteophyte formation noted with moderate/severe bilateral neural foraminal st enosis. C6-7: There is disc space narrowing with disc desiccation and small disc osteophyte complex. No assoc iated central canal stenosis. Bilateral facet and uncovertebral osteophyte formation with mild bilateral neural foraminal stenosis, left greater than right. C7-T1: No significant central canal or neural foraminal stenosis. Mild disc space narrowing with disc desiccation. There is no focal area of abnormal signal intensity identified within the cervical cord. The postcontrast imaging demonstrates no abnormal enhancement involving the contents of the thecal sa c. No abnormal enhancement of the osseous structures or intervertebral disks. Carotid vasculature demonstrates a medialized retropharyngeal course bilaterally. There is a inferior left-sided thyroid nodule suspected measuring up to 1.5 cm. Thyroid ultrasound recommended. IMPRESSION:Cervical spine degenerative change as described above. Inferior thyroid nodule on the left.
--- NOTE | 2019-05-11 12:21 | MRI ---
MRI BRAIN WITH AND WITHOUT IV CONTRAST: Date: 05/11/2019 HISTORY: Falls, dementia, breast and uterine cancer. COMPARISON: 10/10/2015. CORRELATION: CT brain without contrast from previous day. FINDINGS: Changes of mild chronic small vessel ischemic disease are again seen. Ventricular size is stable and the basilar cisterns are patent. No evidence of infarct, hemorrhage, mass, midline shift, or abnormal extra-axial fluid collections are seen. No abnormal postcontrast enhancement is noted. No restricted diffusion is seen. The visualized paranasal sinuses and mastoid air cells are well aerated. IMPRESSION: No evidence of acute intracranial process or mass/metastatic disease. POS: [facility]
[2019-05-11] MEDS ORDERED: Morphine 2 MG/ML SYRINGE SLOW IVP SCH (12:30)
[2019-05-11] MEDS: Potassium Chloride 20 MEQ in Premix Bag 1 BAG IVPB SCH ×4 (12:40→15:40)
--- NOTE | 2019-05-11 14:42 | MRI ---
MRI THORACIC SPINE WITH AND WITHOUT CONTRAST: DATE: 05/11/2019. HISTORY: An 83-year-old female with breast cancer and uterine cancer, with T11 fracture. FINDINGS: Air fluid level within dilated upper esophagus, incompletely imaged. Old anterior wedge compression fracture deformity of T5 vertebral body, with normal bone marrow signa l. Multilevel, predominantly mild degenerative disk changes. There is an approximately 3 x 2 x 3.5 cm wedge-shaped lesion occupying the anterior inferior half of the T11 vertebral body. There is a sharply demarcated straight boundary between the normal bone of t he posterior superior half of the T11 vertebral body, and this mass, which is hyperintense on STIR an d T2WI, and hypointense on T1WI. Only a small anterior 1 x 1 cm triangular component of this lesion enhances. The rest of this lesion does not enhance. The broad, thin, inferior end plate is inferior ly displaced by this expansile lesion. The inferior end plate of T11 has T1-hypointense signal. Onl y a tiny portion of this thin inferior end plate enhances. The combination of retrolisthesis of T11 on T12, and slight bony retropulsion of T11 vertebral body, causes moderate central spinal canal stenosis. There is circumferential epidural enhancing tissues t hat then causes severe thecal sac stenosis. The lower thoracic spinal cord is focally, abruptly defo rmed and posteriorly bent at this level, but there is no cord edema or syrinx. The circumferential enhancing epidural material extends from the T11-12 level, superiorly to the mid T9 level. There is severe bilateral neural foraminal stenosis at T11-12 due to the retrolisthesis. There is prevertebral space soft tissue thickening with edema and enhancement, at T11, extending supe riorly up to the T8-9 level, and extending inferiorly down to at least the L1 level. There is no high-grade central spinal canal stenosis at any other level. There is no bone marrow sig nal abnormality at any other level in the thoracic spine. There is mild superior end plate edema pos teriorly at T12 with enhancement. IMPRESSION: 1. An unusual expansile, only partially enhancing lesion involving the anterior inferior half of the T11 vertebral body. This is probably an expansile hematoma within bone, of an acute or subacute fra cture of T11 vertebral body. (No evidence of neoplasm or osteomyelitis-discitis.) 2. Spinal cord impingement at T11-12 due to high-grade central spinal canal stenosis due to retrolis thesis of T11 on T12, which also causes severe bilateral neural foraminal stenosis. 3. Enhancing epidural material extending from this level superiorly several levels, may represent ep idural venous engorgement due to the high-grade central spinal canal stenosis and compression at the T11-12 level. 4. Edema/hematoma in the prevertebral space. POS: [facility]
--- NOTE | 2019-05-11 15:27 | MRI ---
MRI LUMBAR SPINE WITH AND WITHOUT CONTRAST: DATE: 05/11/2019. HISTORY: An 83-year-old female with T11 fracture, severe low back pain, and bilateral lower extremity weakness . History of breast cancer and uterine cancer. TECHNIQUE: Multiple sequences obtained in axial and sagittal planes, pre and post IV injection of gadolinium-bas ed contrast agent: 20 mL MultiHance. FINDINGS: Large wedge-shaped T2 hyperintense, T1 hypointense, and partially enhancing expansile lesion occupyin g the anterior inferior half of the volume of T11 vertebral body. Prevertebral soft tissue edema and enhancement at that level. Slight retrolisthesis of T11 on T12, and mild bony retropulsion of infer ior end plate of T11 result in moderate central spinal canal stenosis. Circumferential enhancing epi dural material at that level (that extends superiorly several levels) contributes to severe thecal sa c stenosis. There is buckling of the spinal cord. There is severe bilateral neural foraminal stenos is at T11-12. T12-L1: Central, left paracentral, and left lateral rim-enhancing material in the spinal canal may r epresent extruded disk material with superior migration reaching up to the pedicle level of T12. It minimally displaces the lower spinal cord to the right. Overall moderate thecal sac stenosis. Chron ic minimal bony retropulsion of right posterior superior end plate L1, associated with a deep old Bakari morl's node. No bone marrow edema. Mild to moderate bilateral neural foraminal stenosis. L1-2: Retrolisthesis of L1 on L2. Disk space is maintained. Mild diffuse disk bulge. Mild central spinal canal stenosis. Conus medullaris terminates at mid L2. Mild bilateral neural foraminal sten osis. L2-3: Retrolisthesis of L2 on L3. Moderate disk space narrowing. Broad chronic indentation of supe rior end plate of L3, prominent old Schmorl's node. No bone marrow edema. Mild to moderate bilatera l facet DJD. Moderate bilateral neural foraminal stenosis. Moderate central spinal canal stenosis. L3-4: Retrolisthesis of L3 on L4. Moderate disk space narrowing. Broad shallow depression of super ior end plate of L4, prominent Schmorl's node. Midline old laminectomy defect. Mild to moderate ramses tral spinal canal stenosis. Moderate to severe bilateral neural foraminal stenosis. L4-5: Mild disk space narrowing. Prominent diffuse disk bulge with superimposed central and bilater al paracentral small disk herniations. Severe bilateral facet DJD. Ligamentum flavum thickening. S evere central spinal canal stenosis. Severe bilateral neural foraminal stenosis. L5-S1: Mild disk space narrowing. Bilateral moderate to severe facet DJD results in ana rosa I anterol isthesis of L5 on S1. Prominent diffuse disk bulge. Mild bilateral neural foraminal stenosis. No c entral stenosis. Lateral recess stenosis bilaterally. IMPRESSION: 1. Fracture and expansile hematoma displacing bone involving the anterior inferior half of the T11 v ertebral body. 2. Retrolisthesis of T11 on T12, and mild bony retropulsion results in high-grade central spinal can al stenosis at T11-12, impinging on the spinal cord, and causing severe bilateral neural foraminal st enosis. Circumferential enhancing epidural material at T11-12 which extends cranially several levels , may represent epidural venous engorgement because of the high-grade central stenosis. 3. Severe lumbar spondylosis with multilevel high-grade degenerative disk disease and high-grade fac et osteoarthrosis. 4. Status post midline laminectomy at L3-4. 5. High-grade neural foraminal stenosis and high-grade central spinal canal stenosis in the lumbar s pine as described above. JN R POS: CET
[2019-05-11] MEDS ORDERED: Magnevist 469MG/ML 20 ML VIAL ONE ×2 (15:32→15:34)
--- NOTE | 2019-05-11 17:10 | PRG ---
DATE OF SERVICE: 05/11/2019 I reviewed Ms. Pringle's imaging. MRI of the brain was largely unremarkable. MRI of the cervical spine reveals chronic degenerative cervical disease that is not contributory to the present symptoms. In thoracic and lumbar spine, there is moderate degenerative disease, but the most important finding is the T11 acute fracture. There were no findings suspicious for metastatic disease. There was more than a typical amount of hemorrhage within the fracture at T11 as well as within the spinal canal itself. There is a modest amount of canal compromise, but not severely so. IMPRESSION AND PLAN: The patient has a traumatic T11 fracture with some associated hemorrhage. Because of her advanced age and medical comorbidities, I would not recommend surgical intervention. I recommend treatment with TLSO brace alone and anticipate that if things stabilize, her leg function may gradually improve. I discussed her case at length with her daughter, Dr. Whitney Pringle, a tile helper in [place]. She confirmed her agreement with this plan and feels that her mother has had this significant cognitive decline of late and that she is also a poor surgical candidate and would not wish surgery under these circumstances. Job ID: [id number]
--- NOTE | 2019-05-11 18:32 | PRG ---
DATE OF SERVICE: 05/11/2019 This is Ceci Cole NP dictating a report for Dr. Leiva. SUBJECTIVE: The patient was seen this morning with Dr. Leiva during morning rounds awake, alert, in no distress. The patient is having some moderate amount of back pain. The patient has a well-fitting clamshell brace in place. The patient is tolerating a regular diet. OBJECTIVE: VITAL SIGNS: Temperature 98.8, pulse 83, respirations 14, SpO2 of 93% on 2 L nasal cannula, blood pressure 93/61. GENERAL: Elderly female, awake, alert, in no distress. HEENT: Head is atraumatic and normocephalic. Mucous membranes moist. PULMONARY: Equal chest rise and fall, no respiratory distress. Bilateral breath sounds clear. ABDOMEN: Obese, soft, nontender. EXTREMITIES: Moves all extremities, strength 5/5 in all extremities, sensation intact, rash has resolved to the arms. Chronic 2+ pedal edema. NEUROLOGIC: GCS 15, no focal deficits. SKIN: Macular rash has resolved. LABORATORY DATA: WBC 10.3, RBC 4.30, hemoglobin 13.2, hematocrit 40.8, platelets 217. Sodium 136, potassium 3.3, chloride 96, BUN 56, creatinine 1.02, estimated GFR 52, glucose 105, calcium 8.6, phosphorus 3.5, magnesium 2.5. CK 951. DIAGNOSTIC DATA: 1. Cervical spine, thoracic spine and lumbar spine MRI: Impression; degenerative changes of the cervical spine, inferior thyroid nodule on the left. No evidence of neoplasm or osteomyelitis. There is hematoma within the bone of an acute or subacute fracture of the T11 vertebral body. 2. Brain MRI: Impression; no evidence of acute intracranial process or mass metastatic disease. PLAN: Continue supportive care. Continue clamshell TLSO at all times. Continue physical and occupational therapy. We will continue to hold patient's Eliquis. Neurosurgery plans conservative treatment only. We will increase the patient's Tylenol No. 3 to scheduled instead of p.r.n. We will continue aggressive pulmonary toilet with incentive spirometer. I did speak to the patient's daughter who is a clinical material handler in [place] and updated her on the patient's condition. The daughter agreed the patient will need inpatient rehab and possibly assisted living after that. We also discussed the patient having symptoms of hallucinations and tremors concerning for Lewy body dementia pending Neurology recommendations. The daughter agreed risk outweigh benefit of the patient being on Eliquis and plan to discontinue completely. The patient was examined by Dr. Leiva during morning rounds. Job ID: [id number]
[2019-05-12 03:42] LABS: Band 9 % (5-11); Eosinophils 1 % (0-10); Hemoglobin 12.7 g/dL (12.0-16.0); Lymphocytes 12 % (21-51); MDiff Complete? YES; Mean Corpuscular HGB CONC 33.3 g/dL (32.0-36.0); Mean Corpuscular Hemoglobin 31.7 pg (27.0-31.0); Mean Corpuscular Volume 95.1 fL (78.0-98.0); Mean Platelet Volume 8.7 fL (7.4-10.4); Monocytes 7 % (0-10); Neutrophil 71 % (42-75); Platelet Count 216 thou/uL (130-400); Platelet Morphology Comment Appears Adequate; RBC Distribution Width 14.1 % (11.5-14.5); Red Blood Cell (RBC) Count 4.01 mill/uL (4.20-5.40); White Blood Cell (WBC) Count 9.6 thou/uL (4.8-10.8)
[2019-05-12 03:57] LABS: Anion Gap 12 mmol/L (10-20); BUN (Urea Nitrogen) 29 mg/dL (9.8-20.1); CK (CPK) 547 U/L (29-168); Calc. Creatinine Clearance 94 mL/min (70-130); Calcium 7.9 mg/dL (7.8-10.44); Carbon Dioxide 27 mmol/L (23-31); Chloride 95 mmol/L (98-107); Estimated GFR-MDRD 84; Glucose 97 mg/dL (83-110); Magnesium 2.2 mg/dL (1.6-2.6); Phosphorus 1.8 mg/dL (2.3-4.7); Potassium 4.7 mmol/L (3.5-5.1); Sodium 129 mmol/L (136-145)
[2019-05-12] MEDS ORDERED: Sodium Phosphate 30 MMOL in Sodium Chloride 0.9% 250 ML 250 ML IVPB SCH (04:30)
[2019-05-12] MEDS: Acetaminophen/Codeine 30-300mg Tablet PO SCH ×3 (04:41→17:40)
[2019-05-12] MEDS: Cyclobenzaprine 10 MG TAB PO PRN (04:44)
--- NOTE | 2019-05-12 05:04 | PRG ---
DATE OF SERVICE: 05/12/2019 SUBJECTIVE: The patient was seen this evening during rounds. She was sitting up in bed with no signs of acute distress. She does seem a little bit more confused today than previously, but generally she was cooperative. Nursing reported no acute events. OBJECTIVE: VITAL SIGNS: Temperature 97.9, pulse 110, respirations 20, oxygen 92% on 3 L nasal cannula, blood pressure 135/75. GENERAL: Well-appearing elderly female, lying in bed with TLSO brace in place. No signs of acute distress. PULMONARY: Equal chest rise and fall. No signs of acute respiratory distress. ASSESSMENT: 1. Status post ground level fall, on Eliquis. 2. T11 burst fracture with hematoma. 3. Abrasions to right lateral thigh. 4. Acute hyponatremia, worsening. 5. Acute kidney injury on chronic kidney disease, resolved. 6. History of chronic sacral fracture, congestive heart failure with diastolic dysfunction, pacemaker, hypertension, pulmonary embolism, dyslipidemia, chronic obstructive pulmonary disease, breast and uterine cancer, bilateral mastectomies, and osteoporosis. 7. Acute hypophosphatemia. PLAN: Continue current diet. We will place the patient on a 1 L free water restriction. She can have as much Gatorade as she likes. We will replace the patient's phosphorus this morning. We will restart her on her diuretics today. We will also check a cortisol level as the patient intermittently has low blood pressures. The patient is to continue work with physical and occupational therapy. She is pending evaluation by Neurology. Job ID: [id number]
[2019-05-12] MEDS: Acetaminophen 325 MG TAB PO SCH ×3 (06:04→18:26)
[2019-05-12] MEDS: Mometasone/Formoterol 120 PUFF INHALER INH SCH ×2 (06:38→19:20)
--- NOTE | 2019-05-12 08:12 | PRG ---
DATE OF SERVICE: 05/12/2019. The patient reports her pain has been well controlled overnight. She is wearing a TLSO brace, which appears to be fitting appropriately. We reviewed her MRIs from yesterday, which were notable for a T11 fracture with some surrounding hematoma and moderate stenosis at this level. There is no evidence of underlying metastasis. On exam this morning, she is awake and alert, in no acute distress. She is moving her legs easily in the bed; just some subtle proximal leg weakness. Sensation is intact to light touch. The patient's neurologic exam appears to be stable. We will continue to have her work with Physical Therapy and she will need inpatient rehabilitation vs SNF. At this time, there are no plans for acute surgical intervention and Dr. Decker has discussed this plan with the patient's daughter. Job ID: [id number] [facility]
[2019-05-12] MEDS ORDERED: Spironolactone 25 MG TAB PO SCH (09:00)
[2019-05-12] MEDS ORDERED: Bumetanide 1 MG TAB PO SCH (09:00)
[2019-05-12] MEDS ORDERED: AcetaZOLAMIDE 250 MG TAB PO SCH (09:00)
[2019-05-12] MEDS: Montelukast Sodium 10 mg Tablet PO SCH (09:38)
[2019-05-12] MEDS: Pramipexole Di-HCl 1 MG TAB PO SCH ×2 (09:38→19:55)
[2019-05-12] MEDS: Bupropion 150 MG XL TAB PO SCH (09:38)
[2019-05-12] MEDS: Potassium Chloride 20 MEQ TAB PO SCH (09:39)
[2019-05-12] MEDS: Gabapentin 100 MG CAP PO SCH (09:39)
[2019-05-12] MEDS: Pantoprazole 40 MG GRANULES PACKET PO SCH (09:40)
[2019-05-12] MEDS: Escitalopram Oxalate 20 mg Tablet PO SCH (09:43)
--- NOTE | 2019-05-12 10:01 | PRG ---
DATE OF SERVICE: 05/12/2019 I visited Ms. Pringle. She has been intermittently confused, but her pain seems well controlled. I did discuss with her the results of the MRI. My plan is for ongoing TLSO bracing. I believe we can begin rehab planning and I will plan on followup x-ray in 4 weeks as an outpatient or in rehab. Job ID: [id number]
[2019-05-12] MEDS ORDERED: Polyethylene Glycol 3350 17 GM Packet PO SCH (13:00)
[2019-05-12] MEDS: Gabapentin 300 MG CAP PO SCH ×2 (15:05→19:55)
--- NOTE | 2019-05-12 15:15 | PRG ---
DATE OF SERVICE: 05/12/2019 This is Ceci Cole NP dictating a report for Colten Enamorado MD. SUBJECTIVE: The patient was seen with Dr. Enamorado during morning rounds. The patient is lying the in hospital bed with a well-fitting TLSO clamshell brace in place. The patient reports her pain is controlled at this time. The patient does have some urinary retention and her bladder scan showed a postvoid of approximately 600 mL. The patient is tolerating a heart healthy diet and was placed on a free water restriction to 1 L yesterday as the patient has been drinking water frequently and her sodium has decreased. OBJECTIVE: VITAL SIGNS: Temperature 97.7, pulse 100, respirations 14, SpO2 of 99% on 2 L nasal cannula, blood pressure 118/85. GENERAL: Well-appearing, elderly female, lying in hospital bed with well-fitting TLSO brace in place. PULMONARY: Equal chest rise and fall, no respiratory distress. EXTREMITIES: Moves all extremities, no focal deficits, 2+ pedal edema, sensation intact in all extremities. LABORATORY DATA: WBC 9.6, RBC 4.01, hemoglobin 12.7, hematocrit 38.2, platelets 216. Sodium 129, potassium 4.7, chloride 95, anion gap 12, BUN 29, creatinine 0.67, estimated GFR 84, glucose 97, calcium 7.9, phosphorus 1.8, magnesium 2.2. ASSESSMENT: 1. Status post ground level fall on Eliquis. 2. T1 burst fracture with hematoma. 3. Abrasion to right lateral thigh. 4. Acute hyponatremia. 5. Acute kidney injury on chronic kidney disease, resolved. 6. History of chronic sacral fracture, congestive heart failure with diastolic dysfunction, pacemaker, hypertension, pulmonary embolism, dyslipidemia, chronic obstructive pulmonary disease, breast and uterine cancer, bilateral mastectomies, and osteoporosis. PLAN: Continue current diet. Continue free water restriction for hyponatremia. The patient can have as much Gatorade as she likes. Continue to monitor electrolytes. Continue physical and occupational therapy. Neurosurgery plans on looking into a different fitting brace that maybe more comfortable for the patient. We will place a Chand catheter for a couple of days until the patient is up and moving since she is having large post void residuals. The patient is pending evaluation by Neurology. We will see if Telemedicine Neurology can see the patient tomorrow. We will place the patient on a bowel regimen. The patient was examined by Dr. Enamorado during morning rounds. Job ID: [id number]
--- NOTE | 2019-05-12 16:46 | PDOC.PALCO ---
Palliative Care Consult - Consult Details Requesting Physician: Dr Enamorado Reason for Consult: goals of care, symptom management, advance directives assistance, complex decision-making Family Members Present: Daughter Whitney and caregiver - Pertinent HPI 83 year old female who lives independently with a paid caregiver during day hours. Daughter reports pronounced medical history with recent decline both in functional status and cognitive ability. Patient was at home and had a fall when attempting to get out of her wheelchair. Fall occurred at night and patient was unable to get herself up, she was found the following morning by her paid caregiver. Caregiver assisted patient, lower back pain persisted through the day and patient was eventually brought to the emergency room for evaluation. Noted to T11 fracture, TLSO clamshell ordered and patient admitted to hospital for further evaluation and medical management. Consult by Dr Enamorado and request of daughter. In discussing history with daughter she contributes fall to decline and progressing symptoms of rigidity, intermittent cognitive impairment, intermittent difficulty swallowing medications, tremor, pinrolling, increasing weakness. - Social History Smoking Status: Former smoker Smoking: quit greater than 1 year Alcohol Use: none Drug Use History: none Living Situation: independent (paid caregiver in day hours) - Medications MAR Reviewed: Yes - Allergies Allergies/Adverse Reactions: Allergies Allergy/AdvReac Type Severity Reaction Status Date / Time iodine Allergy Severe Short of Verified 11/20/15 06:39 Breath adhesive Allergy Verified 11/20/15 06:39 Cephalosporins Allergy Rash Verified 11/21/15 11:32 - Subjective Awake alert, hard of hearing, clamshell in place, wells - ROS Constitutional: alert, weakness ENT: difficulty swallowing (intermittant) Respiratory: other (deneis cough, shortness of breath) Cardiology: other (denies light headedness, palpitations) Gastrointestinal: constipation Genitourinary: other (denies frequency, dysuria prior to admission) Musculoskeletal: back pain Neurological: other (denies numbness, headache. Daughter confirms tremor) Skin: other (denies puritis, rash) Psychological: other (denies anxiety, mood changes. Daughter confirms anxiety/ parnioa, hallucination) - Objective Vital Signs: Vital Signs - Most Recent Temp Pulse Resp BP Pulse Ox 98.2 F 94 16 112/69 98 05/12/19 10:58 05/12/19 12:09 05/12/19 12:09 05/12/19 10:58 05/12/19 12:09 Palliative Performance Scale: 50 - Physical Exam Constitutional: NAD, ill appearing HEENT: moist MMs, sclera anicteric Respiratory: unlabored breathing Cardiovascular: RRR Deviation from normal: murmur Gastrointestinal: soft, non-tender Genitourinary: wells catheter Musculoskeletal: edema present Deviation from normal: dinimished pedal pulses, stronger radial. Neurology: moves all 4 limbs Deviation from normal: unequal transit bus operator greater to left. Tremor to hands Skin: cap refill <2 seconds, fragile Psychiatric: A&O x 3, normal affect - Problem List (1) Palliative care encounter Code(s): Z51.5 - ENCOUNTER FOR PALLIATIVE CARE Current Visit: Yes Status: Acute (2) Physical deconditioning Code(s): R53.81 - OTHER MALAISE Current Visit: Yes Status: Acute (3) Parkinsonian features Code(s): R25.9 - UNSPECIFIED ABNORMAL INVOLUNTARY MOVEMENTS Current Visit: Yes Status: Acute (4) Fracture lumbar vertebra-closed Code(s): S32.009A - UNSP FRACTURE OF UNSP LUMBAR VERTEBRA, INIT FOR CLOS FX Current Visit: Yes Status: Acute (5) Acute on chronic kidney failure Code(s): N17.9 - ACUTE KIDNEY FAILURE, UNSPECIFIED; N18.9 - CHRONIC KIDNEY DISEASE, UNSPECIFIED Current Visit: Yes Status: Acute - Plan/Recommendations Plan: Initial Palliative Care Consult with Ms Pringle, her daughter and caregiver. Discussed resuscitation status and patient desires to have no resuscitation measures, not a legible signature so patient daughter who is also MPOA signed. Discussed Goal of Care and to transition to Rehab then consider Home Health with a Palliative Program and transition to Hospice when appropriate. This was after lengthy conversation in relation to decline and onset of various symptoms. Parkinson type symptoms, will request initiation of medication to symptomatically treat. Daughter and Patient in agreement. Palliative Care will follow up 05/13/2019 and further discuss goal of care and have OOHDNAR completed. [70] minutes spent on this encounter with >50% of the time in counseling and coordination of care. Thank you for this very appropriate consult.
[2019-05-12] MEDS: Senokot S 8.6-50 MG TAB PO SCH (19:55)
[2019-05-12] MEDS ORDERED: Hydrocortisone Sod Succ/PF 100 mg/2 ml Vial IVP SCH (20:15)
[2019-05-12] MEDS ORDERED: Sodium Chloride 0.9% 500 ML IV SCH (21:45)
[2019-05-13] MEDS: Acetaminophen 325 MG TAB PO SCH ×5 (01:00→23:21)
[2019-05-13] MEDS: Hydrocortisone Sod Succ/PF 100 mg/2 ml Vial IVP SCH ×4 (01:00→20:49)
[2019-05-13] MEDS: Mometasone/Formoterol 120 PUFF INHALER INH SCH ×2 (05:19→18:47)
[2019-05-13 06:26] LABS: Hemoglobin 12.8 g/dL (12.0-16.0); Mean Corpuscular HGB CONC 32.3 g/dL (32.0-36.0); Mean Corpuscular Hemoglobin 31.3 pg (27.0-31.0); Mean Corpuscular Volume 97.2 fL (78.0-98.0); Mean Platelet Volume 7.8 fL (7.4-10.4); Platelet Count 196 thou/uL (130-400); RBC Distribution Width 14.3 % (11.5-14.5); Red Blood Cell (RBC) Count 4.09 mill/uL (4.20-5.40); White Blood Cell (WBC) Count 6.6 thou/uL (4.8-10.8)
[2019-05-13 06:46] LABS: Anion Gap 11 mmol/L (10-20); BUN (Urea Nitrogen) 16 mg/dL (9.8-20.1); CK (CPK) 277 U/L (29-168); Calc. Creatinine Clearance 95 mL/min (70-130); Calcium 8.4 mg/dL (7.8-10.44); Carbon Dioxide 33 mmol/L (23-31); Chloride 99 mmol/L (98-107); Estimated GFR-MDRD 86; Glucose 157 mg/dL (83-110); Magnesium 2.3 mg/dL (1.6-2.6); Phosphorus 2.6 mg/dL (2.3-4.7); Potassium 4.6 mmol/L (3.5-5.1); Sodium 138 mmol/L (136-145)
--- NOTE | 2019-05-13 08:49 | PRG ---
DATE OF SERVICE: 05/13/2019 At this point, Neurosurgery is not recommending any anticoagulation or DVT prophylaxis considering the patient's recent fracture at T11 with hematoma. The patient should hold all anticoagulation, anti-platelet drugs at minimum 2 weeks but preferably until office fu in 4 weeks. Job ID: [id number] [facility]
[2019-05-13] MEDS: Escitalopram Oxalate 20 mg Tablet PO SCH ×2 (08:55→12:36)
[2019-05-13] MEDS: Pantoprazole 40 MG GRANULES PACKET PO SCH ×2 (08:55→12:37)
[2019-05-13] MEDS: Bupropion 150 MG XL TAB PO SCH ×2 (08:55→12:35)
[2019-05-13] MEDS: Pramipexole Di-HCl 1 MG TAB PO SCH ×3 (08:55→20:49)
[2019-05-13] MEDS: Gabapentin 300 MG CAP PO SCH ×3 (08:55→20:50)
[2019-05-13] MEDS: Montelukast Sodium 10 mg Tablet PO SCH ×2 (08:55→12:36)
[2019-05-13] MEDS: Polyethylene Glycol 3350 17 GM Packet PO SCH ×2 (08:55→12:37)
[2019-05-13] MEDS: Senokot S 8.6-50 MG TAB PO SCH ×3 (08:56→20:49)
[2019-05-13] MEDS: Potassium Chloride 20 MEQ TAB PO SCH ×2 (08:56→12:36)
--- NOTE | 2019-05-13 09:13 | PRG ---
DATE OF SERVICE: 05/13/2019 Ms. Pringle is stable. She is having problems with discomfort of the TLSO brace and [facility] is refitting the brace. I had a lengthy discussion with the patient's daughter regarding the pre-fall neurologic status and their hopes for Neurology consultation. No further neurosurgical recommendations at this time. We will see in 4 weeks with x-rays. Job ID: [id number]
[2019-05-13 09:14] LABS: Band 4 % (5-11); Eosinophils 1 % (0-10); Lymphocytes 10 % (21-51); MDiff Complete? YES; Metamyelocyte 1 % (0-0); Monocytes 5 % (0-10); Neutrophil 79 % (42-75); RBC Morphology Normal
--- NOTE | 2019-05-13 09:33 | PRG ---
DATE OF SERVICE: 05/12/2019 SUBJECTIVE: The patient was seen this evening during rounds. Nursing reported earlier in the evening that the patient was hypotensive with blood pressure systolic in the 70s. She did receive hydrocortisone at that time for acute adrenal insufficiency. This did improve her blood pressure with systolic in 80s. Upon evaluation, the patient was recently restarted on all of her home diuretics and subsequently, a 500 mL bolus of normal saline was administered overnight for hypotension. OBJECTIVE: VITAL SIGNS: Temperature 97.7, pulse 91, respirations 18, oxygen saturation 98% on 2 L nasal cannula, and blood pressure 87/53. GENERAL: Well-appearing elderly female, lying in bed with no signs of acute distress. PULMONARY: Equal chest rise and fall. No signs of acute respiratory distress. ASSESSMENT: 1. Status post ground level fall, on Eliquis. 2. T11 fracture with hematoma. 3. Abrasion, right thigh. 4. Acute hyponatremia, persistent. 5. Acute on chronic kidney disease, improved. 6. History of chronic sacral fracture. 7. Congestive heart failure with diastolic dysfunction. 8. Pacemaker. 9. Hypertension. 10. Pulmonary embolism. 11. Dyslipidemia. 12. Chronic obstructive pulmonary disease. 13. Breast and uterine cancer. 14. Bilateral mastectomies. 15. Osteoporosis. PLAN: Continue current diet and pain regimen. Continue physical and occupational therapy. We will hold her diuretics, and she will receive 500 mL of fluid IV. Continue to free water restrict the patient. Repeat blood work in the morning. Continue aggressive physical and occupational therapy. We will also continue hydrocortisone for acute adrenal insufficiency. I did discuss with Neurosurgery Team about starting the patient on chemo DVT prophylaxis. They do recommend that we continue to hold at this time. They are concerned about the spinal hematoma. We will consider possibly placing an IVC filter tomorrow during rounds. We will further discuss this. Job ID: [id number]
[2019-05-13] MEDS: Carbidopa/Levodopa 25-100 mg Tablet PO SCH ×2 (12:44→20:50)
--- NOTE | 2019-05-13 12:56 | PRG ---
DATE OF SERVICE: 05/13/2019 SUBJECTIVE: The patient was seen during morning rounds with Dr. Leiva. The patient is awake, alert, lying in hospital bed. The patient is pending adjustment to her TLSO clamshell brace as it has been uncomfortable for her. The patient continues to have a Chand catheter in place as she has had some urinary retention. The patient continues to tolerate a diet. The patient's sodium has improved since she has been on a free water restriction. The patient continues to have good urinary output. The patient did have some soft blood pressures overnight and was given a 500 normal saline bolus with improved blood pressure. OBJECTIVE: VITAL SIGNS: Temperature 98.4, pulse 92, respirations 16, SpO2 of 98% on room air, blood pressure 106/67. GENERAL: Elderly female, lying in hospital bed, in no acute distress. PULMONARY: Equal chest rise and fall, no respiratory distress. EXTREMITIES: Moves all extremities. NEURO: No focal deficits, sensation intact in all extremities and good strength in all extremities. LABORATORY DATA: WBC 6.6, RBC 4.09, hemoglobin 12.8, hematocrit 39.7, platelets 196. Sodium 138, potassium 4.6, chloride 99, anion gap 11, BUN 16, creatinine 0.66, estimated GFR 86, glucose 157, calcium 8.4, phosphorus 2.6, magnesium 2.3. CK 277, BNP 315.8. DIAGNOSTICS: There is no new diagnostics to review today. ASSESSMENT: 1. Status post ground level fall, on Eliquis. 2. T1 burst fracture with hematoma. 3. Abrasion right lateral thigh. 4. Hyponatremia, resolved. 5. Acute kidney injury on chronic, resolved. 6. History of chronic sacral fractures. 7. Congestive heart failure with diastolic dysfunction, pacemaker. 8. Hypertension. 9. Pulmonary embolism. 10. Dyslipidemia. 11. Chronic obstructive pulmonary disease. 12. Breast and uterine cancer. 13. Bilateral mastectomies. 14. Osteoporosis. PLAN: The patient will be n.p.o. today. We will continue free water restriction. The patient will have an IVC filter placed by Dr. Gil later today or tomorrow as the patient is high risk for PE and we are not able to put her on any anticoagulation due to her T1 hematoma. The plan has been discussed with the patient and the patient's daughter who agree. The patient will go to a rehab in the next couple of days when ready. The patient was examined by Dr. Leiva. Job ID: [id number]
--- NOTE | 2019-05-13 16:11 | PDOC.PALPN ---
Palliative Progress Note - Subjective Awake, mild confusion, limited mobility. Caregiver and daughter at bedside. - Objective Vital Signs: Vital Signs - Most Recent Temp Pulse Resp BP Pulse Ox 97.5 F L 95 16 104/63 96 05/13/19 11:32 05/13/19 13:11 05/13/19 13:11 05/13/19 11:32 05/13/19 13:11 - Physical Exam Constitutional: confusion, ill appearing HEENT: moist MMs, sclera anicteric Respiratory: no wheezing, unlabored breathing, diminished lung sound Cardiovascular: RRR Gastrointestinal: soft, non-tender, no distention Genitourinary: incontinent Musculoskeletal: pulses present, edema present Neurology: moves all 4 limbs Deviation from normal: unequal utility worker, tremor hands Skin: cap refill <2 seconds, bruising, fragile Psychiatric: normal mood Deviation from normal: Oriented x2 - Assessment (1) Palliative care encounter Code(s): Z51.5 - ENCOUNTER FOR PALLIATIVE CARE Status: Acute (2) Physical deconditioning Code(s): R53.81 - OTHER MALAISE Status: Acute (3) Parkinsonian features Code(s): R25.9 - UNSPECIFIED ABNORMAL INVOLUNTARY MOVEMENTS Status: Acute (4) Fracture lumbar vertebra-closed Code(s): S32.009A - UNSP FRACTURE OF UNSP LUMBAR VERTEBRA, INIT FOR CLOS FX Status: Acute (5) Acute on chronic kidney failure Code(s): N17.9 - ACUTE KIDNEY FAILURE, UNSPECIFIED; N18.9 - CHRONIC KIDNEY DISEASE, UNSPECIFIED Status: Acute - Plan Plan: Initiated sinemet for Parkison type symptoms. Also suggested music memory and loading Ipod with music and busy blanket for rolling fidgety hands. Discussed goal of care as previously identified. Will continue to follow and monitor response to medication, as well as constipation [45] minutes spent on this encounter with >50% of the time in counseling and coordination of care. - ROS Non Response: due to mental status (Unreliable source for ROS)
[2019-05-13] MEDS ORDERED: predniSONE 50 MG TAB PO SCH (19:00)
[2019-05-14] MEDS: Hydrocortisone Sod Succ/PF 100 mg/2 ml Vial IVP SCH ×4 (00:50→20:24)
[2019-05-14] MEDS ORDERED: predniSONE 50 MG TAB PO SCH ×2 (01:00→07:00)
--- NOTE | 2019-05-14 01:32 | PRG ---
DATE OF SERVICE: 05/13/2019 SUBJECTIVE: The patient was seen this evening during rounds. She was sitting up in bed, having a snack. She reported no issues, reported pain is well controlled. OBJECTIVE: VITAL SIGNS: Temperature 97.7, pulse 94, respirations 18, oxygen saturation 95% on 2 L nasal cannula, blood pressure 105/66. GENERAL: Well-appearing elderly female, sitting up in bed with no signs of acute distress. PULMONARY: Equal chest rise and fall. No signs of acute respiratory distress. ASSESSMENT: 1. Status post ground level fall on Eliquis. 2. T11 fracture with hematoma. 3. Abrasion on the right thigh. 4. Hyponatremia, stable. 5. Uwbpb-ke-eiumtqt kidney disease, resolved. 6. Parkinson's. 7. History of chronic sacral fracture. 8. Congestive heart failure, diastolic dysfunction, pacemaker. 9. Hypertension. 10. Pulmonary embolism. 11. Dyslipidemia. 12. Chronic obstructive pulmonary disease. 13. Breast and uterine cancer. 14. Bilateral mastectomy. 15. Osteoporosis. PLAN: The patient will be n.p.o. at midnight and she will receive an IVC filter by Dr. Gil tomorrow. Continue all medications as previously prescribed. The patient diagnosed with Parkinson's by palliative care team. She was started on Sinemet. She is pending evaluation by Neurology. Job ID: [id number]
[2019-05-14] MEDS: Acetaminophen 325 MG TAB PO SCH ×3 (06:04→16:33)
[2019-05-14 06:10] LABS: #Lymphocytes 0.3 thou/uL (1.20-3.40); #Monocytes 0.2 thou/uL (0.11-0.59); #Neutrophils 9.1 thou/uL (1.40-6.50); %Basophils 0.1 % (0.0-1.0); %Eosinophils 0.3 % (0.0-10.0); %Lymphocytes 3.3 % (21.0-51.0); %Monocytes 2.4 % (0.0-10.0); %Neutrophils 93.9 % (42.0-75.0); Hemoglobin 12.6 g/dL (12.0-16.0); Mean Corpuscular Hemoglobin 31.5 pg (27.0-31.0); Mean Corpuscular Volume 98.4 fL (78.0-98.0); Mean Platelet Volume 7.6 fL (7.4-10.4); Platelet Count 217 thou/uL (130-400); RBC Distribution Width 14.3 % (11.5-14.5); Red Blood Cell (RBC) Count 4.01 mill/uL (4.20-5.40); White Blood Cell (WBC) Count 9.7 thou/uL (4.8-10.8)
[2019-05-14 06:38] LABS: Anion Gap 10 mmol/L (10-20); BUN (Urea Nitrogen) 16 mg/dL (9.8-20.1); Calc. Creatinine Clearance 97 mL/min (70-130); Calcium 8.8 mg/dL (7.8-10.44); Carbon Dioxide 34 mmol/L (23-31); Chloride 99 mmol/L (98-107); Estimated GFR-MDRD 87; Glucose 155 mg/dL (83-110); Magnesium 2.2 mg/dL (1.6-2.6); Phosphorus 1.6 mg/dL (2.3-4.7); Potassium 5.5 mmol/L (3.5-5.1); Sodium 137 mmol/L (136-145)
[2019-05-14] MEDS ORDERED: diphenhydrAMINE 50 MG CAP PO SCH (07:00)
[2019-05-14] MEDS ORDERED: Lidocaine 1% (PF) 30 ML VIAL ONE (07:17)
[2019-05-14] MEDS ORDERED: Sodium Phosphate 30 MMOL in Sodium Chloride 0.9% 250 ML 250 ML IVPB SCH (07:45)
[2019-05-14] MEDS: Mometasone/Formoterol 120 PUFF INHALER INH SCH ×2 (07:47→19:10)
[2019-05-14] MEDS ORDERED: Sodium Chloride 0.9% 10 ML ONE (10:45)
[2019-05-14] MEDS: Pramipexole Di-HCl 1 MG TAB PO SCH ×2 (13:30→20:24)
[2019-05-14] MEDS: Montelukast Sodium 10 mg Tablet PO SCH (13:30)
[2019-05-14] MEDS: Carbidopa/Levodopa 25-100 mg Tablet PO SCH ×3 (13:30→20:24)
[2019-05-14] MEDS: Bupropion 150 MG XL TAB PO SCH (13:30)
[2019-05-14] MEDS: Escitalopram Oxalate 20 mg Tablet PO SCH (13:30)
[2019-05-14] MEDS: Gabapentin 300 MG CAP PO SCH ×3 (13:31→20:24)
[2019-05-14] MEDS: Senokot S 8.6-50 MG TAB PO SCH ×2 (13:32→20:24)
[2019-05-14] MEDS: Polyethylene Glycol 3350 17 GM Packet PO SCH (13:32)
[2019-05-14] MEDS: Pantoprazole 40 MG GRANULES PACKET PO SCH (13:32)
[2019-05-14] MEDS ORDERED: Iopamidol 370 76% 50 ML VIAL FS ONE (15:51)
[2019-05-14] MEDS: Acetaminophen/Codeine 30-300mg Tablet PO PRN (16:32)
--- NOTE | 2019-05-14 19:14 | PRG ---
DATE OF SERVICE: 05/14/2019 SUBJECTIVE: The patient was seen this evening after returning from the labeling associate after having an IVC filter placed. The patient is currently resting comfortably in no acute distress. The patient has not eaten much today. The patient had no overnight events. The patient's pain has been well controlled. OBJECTIVE: VITAL SIGNS: Temperature 97.5, pulse 99, respirations 18, SpO2 of 94% on 2 L nasal cannula, blood pressure 119/73. GENERAL: Elderly female, lying in hospital bed, in no acute distress. PULMONARY: Equal chest rise and fall, good inspiratory and expiratory effort. No distress. EXTREMITIES: Moves all extremities. Positive pedal edema, which is chronic. LABORATORY DATA: WBC 9.7, RBC 4.01, hemoglobin 12.6, hematocrit 39.5, platelets 217. Sodium 137, potassium 5.5, BUN 16, creatinine 0.65, estimated GFR 87, glucose 155, calcium 8.8, phosphorus 1.6, magnesium 2.2. ASSESSMENT: 1. Status post ground level fall, on Eliquis. 2. T11 fracture with hematoma. 3. Abrasion on the right thigh. 4. Hyponatremia, resolved. 5. Acute on chronic kidney disease, resolved. 6. Parkinson's. 7. History of chronic sacral fracture, hypertension, congestive heart failure with diastolic dysfunction, pacemaker, pulmonary embolism, dyslipidemia, chronic obstructive pulmonary disease, breast and uterine cancer, bilateral mastectomy, and osteoporosis. PLAN: The patient is to be flat for 4 hours post IVC filter. We will restart patient's Lasix. Continue physical and occupational therapy. The patient is pending placement to inpatient rehab. Continue pain control. We will have the patient up in the chair as much as possible. Continue to hold the patient's potassium. Job ID: [id number]
--- NOTE | 2019-05-14 20:07 | CON ---
DATE OF TELEMEDICINE CONSULTATION: 05/14/2019 CHIEF COMPLAINT: Possible Lewy body dementia. HISTORY OF PRESENT ILLNESS: History was obtained both from the chart and the nursing staff and caregiver. The patient came here on the 10th following a fall and the patient was admitted for the fall and fracture of her T11. The patient was found to have previous medical history of diastolic dysfunction, recent pacemaker placement, pulmonary embolism on long-term Eliquis, COPD, and chronic pedal edema. She stated that she was at the sink and was trying to get back to her chair, and she fell. Per her caregiver, the patient was washing her hand, she turned and fell , and she normally walks with shuffling, and she also has developed tremor in upper limbs on both sides, and her daughter thought she might have Lewy body dementia. She just started levodopa yesterday, and per nursing staff, this levodopa has helped. The patient was diagnosed having a T11 fracture and Neurosurgery was consulted and she is now wearing a TLSO clamshell and she is under trauma admission at this time. PREVIOUS MEDICAL HISTORY: Diastolic dysfunction, COPD, hypertension, hyperlipidemia, lower extremity edema, pacemaker placement, breast cancer, uterine cancer. PAST SURGICAL HISTORY: Cholecystectomy, hysterectomy, bilateral mastectomy, spinal surgery, venous ablation, pacemaker placement. SOCIAL HISTORY: Prior smoker. She quit 50 years ago. Does not drink alcohol. No drug use. She lives alone. ALLERGIES: SHE IS ALLERGIC TO IODINE, ADHESIVE TAPE, AND CEPHALOSPORIN. MEDICATIONS: Noted per chart. She is on; 1. Diamox. 2. Ventolin. 3. Eliquis. 4. Vitamin C. 5. Bumex. 6. Wellbutrin. 7. Calcium. 8. Lexapro. 9. Breo Ellipta inhaler. 10. Mucinex. 11. DuoNeb. 12. Singulair. 13. Multivitamin. 14. Protonix. 15. K-Dur. 16. Spironolactone. 17. Pramipexole. REVIEW OF SYSTEMS: Difficult to obtain. GENERAL: The patient is a bit confused. PULMONARY: Negative for shortness of breath. GI: Negative for nausea, vomiting or diarrhea. NEUROLOGIC: Positive for confusion, hallucinations, as well as slowness of walking and tremor. DERMATOLOGIC: Negative for skin rash. OPHTHALMOLOGIC: Negative for vision problems. ENT: Negative. PHYSICAL EXAMINATION: VITAL SIGNS: Temperature 97.5, pulse 99, respiratory rate 18, O2 saturations 94 %, blood pressure 119/70. GENERAL APPEARANCE: Well-built, well-nourished lady. She is using restrictive device for her thoracic spine fracture. She is sitting comfortably in the recliner. CHEST: Clear vesicular breathing. CARDIOVASCULAR: S1 and S2 heard. No murmurs. ABDOMEN: Soft. NEUROLOGIC: Higher intellectual function. She was able to say that she is in [place], [place], and that this is [facility]. She was unable to give me the date, but stated it was May 2019. Cranial nerve examination; normal extraocular movements. Normal sensation of face bilaterally. Tongue midline. Pupils are 2 mm bilaterally. No facial asymmetry noted. Normal hearing bilaterally and normal elevation of palate. Motor; bulk normal, tone normal. Strength 5/5 throughout. No tremor was noted. Muscle groups tested; iliopsoas, hamstrings, quadriceps, ankle dorsiflexion, plantar flexion, deltoid, biceps, triceps, wrist extension and flexion, finger extension and flexion bilaterally . Sensory normal to touch bilaterally. Cerebellar, normal lalbss-bt-iion and kjzd-au-rvev was difficult to test . DIAGNOSTIC STUDIES: Lab workup; white count 9.7, hemoglobin 12.6, hematocrit 39.5, platelet count 217. Chemistry; sodium 137, potassium 5.5, chloride 99, bicarb 34, BUN 16, creatinine 0.65, glucose 155. BNP 315.8. CPK is 951, down to 277. Her other workup include CT of the head, which was performed on the and CT did not show any acute finding. MRI of the brain was obtained on 05/10 and MRI of the brain did not show any acute intracranial process. She does have mild chronic vascular disease. IMPRESSION: The patient with likely dementia and Parkinson disease. She does have a family history of similar illness in her brother and sister, and she fell and fractured her T11 vertebra at this time. Her likely underlying Parkinson disease cannot be ruled out at this time based on her current history and physical examination. She might have responded to levodopa because she has no tremor on exam or rigidity. This could be likely secondary to levodopa. RECOMMENDATIONS: Continue levodopa for now. Once she is discharged, she can see Dr. Holder and she might need outpatient testing including neuropsychological testing to make a formal diagnosis of dementia later. If she is sundowning or hallucinating, consider adding Seroquel, which can help with this case. Call if you have any further questions. Job ID: [id number] [email or web address]
--- NOTE | 2019-05-14 23:07 | PRG ---
DATE OF SERVICE: SUBJECTIVE: The patient was seen this evening during rounds. She was sitting up in bed and was comfortable with no signs of acute distress. She reported pain was well controlled. Tolerating her diet. IVC filter placed today. OBJECTIVE: VITAL SIGNS: Temperature 97.5, pulse 87, respirations 16, oxygen saturation 95% on 2 L nasal cannula, and blood pressure 143/84. GENERAL: Well-appearing elderly female, sitting up in bed with no signs of acute distress. PULMONARY: Equal chest rise and fall. No signs of acute respiratory distress. ASSESSMENT: 1. Status post ground level fall, on Eliquis. 2. T11 fracture with hematoma. 3. Hyponatremia, resolved. 4. Acute hyperkalemia. 5. Acute on chronic kidney disease, resolved. 6. Parkinson's. 7. History of chronic sacral fracture, congestive heart failure with diastolic dysfunction, pacemaker, hypertension, pulmonary embolism, dyslipidemia, chronic obstructive pulmonary disease, breast and uterine cancer, bilateral mastectomy, and osteoporosis. PLAN: Continue current regular diet. Continue physical and occupational therapy. Continue free water restriction to 1 L. We will discontinue the Chand tomorrow and start more aggressive physical therapy. We will hold the patient's home potassium chloride. Job ID: [id number]
[2019-05-15] MEDS: Acetaminophen 325 MG TAB PO SCH ×4 (00:33→18:11)
[2019-05-15] MEDS: Hydrocortisone Sod Succ/PF 100 mg/2 ml Vial IVP SCH ×3 (02:48→15:52)
[2019-05-15] MEDS: Acetaminophen/Codeine 30-300mg Tablet PO PRN ×2 (02:50→18:11)
[2019-05-15 05:21] LABS: Anion Gap 9 mmol/L (10-20); BUN (Urea Nitrogen) 19 mg/dL (9.8-20.1); Calc. Creatinine Clearance 94 mL/min (70-130); Calcium 8.7 mg/dL (7.8-10.44); Carbon Dioxide 35 mmol/L (23-31); Chloride 100 mmol/L (98-107); Estimated GFR-MDRD 84; Glucose 150 mg/dL (83-110); Magnesium 2.2 mg/dL (1.6-2.6); Phosphorus 2.9 mg/dL (2.3-4.7); Potassium 4.8 mmol/L (3.5-5.1); Sodium 139 mmol/L (136-145)
[2019-05-15 06:57] LABS: Band 9 % (5-11); Hemoglobin 12.1 g/dL (12.0-16.0); Lymphocytes 9 % (21-51); MDiff Complete? YES; Mean Corpuscular HGB CONC 31.9 g/dL (32.0-36.0); Mean Corpuscular Hemoglobin 31.7 pg (27.0-31.0); Mean Corpuscular Volume 99.3 fL (78.0-98.0); Mean Platelet Volume 7.5 fL (7.4-10.4); Monocytes 2 % (0-10); Neutrophil 80 % (42-75); Platelet Count 232 thou/uL (130-400); RBC Distribution Width 14.4 % (11.5-14.5); Red Blood Cell (RBC) Count 3.81 mill/uL (4.20-5.40); White Blood Cell (WBC) Count 8.9 thou/uL (4.8-10.8)
[2019-05-15] MEDS: Mometasone/Formoterol 120 PUFF INHALER INH SCH ×2 (07:56→18:25)
--- NOTE | 2019-05-15 08:55 | OP ---
DATE OF PROCEDURE: 05/14/2019 PREOPERATIVE DIAGNOSES: 1. History of pulmonary embolus. 2. Contraindication to anticoagulation. PROCEDURE PERFORMED: Placement of TrapEase IVC filter. ANESTHESIA: 1% lidocaine. DESCRIPTION OF PROCEDURE: After prepping and draping, ultrasound-guided puncture of the right common femoral vein was performed after lidocaine infiltration. First pass was successful. Wire advanced under fluoroscopy and contrast venography obtained after a wire was documented going in the right renal vein. IVC measurements were obtained and were adequate for filter placement and the TrapEase filter was then deployed. The patient tolerated the procedure. Job ID: [id number]
[2019-05-15] MEDS: Montelukast Sodium 10 mg Tablet PO SCH (09:00)
[2019-05-15] MEDS: Gabapentin 300 MG CAP PO SCH ×3 (09:00→20:44)
[2019-05-15] MEDS: Pantoprazole 40 MG GRANULES PACKET PO SCH (09:00)
[2019-05-15] MEDS: Pramipexole Di-HCl 1 MG TAB PO SCH ×2 (09:01→20:44)
[2019-05-15] MEDS: Escitalopram Oxalate 20 mg Tablet PO SCH (09:01)
[2019-05-15] MEDS: Bupropion 150 MG XL TAB PO SCH (09:01)
[2019-05-15] MEDS: Carbidopa/Levodopa 25-100 mg Tablet PO SCH ×3 (09:01→20:44)
[2019-05-15] MEDS: Senokot S 8.6-50 MG TAB PO SCH ×2 (09:02→20:35)
[2019-05-15] MEDS: Polyethylene Glycol 3350 17 GM Packet PO SCH (09:03)
--- NOTE | 2019-05-15 10:35 | RAD ---
Chest one view HISTORY: CHF. Dyspnea. COMPARISON: 05/10/2019. FINDINGS: Cardiac silhouette is magnified and upper limits of normal in size. Pulmonary vasculature s lightly engorged. Each hemidiaphragm partially obscured by ill-defined opacity favored to represent pleural fluid and patchy bibasilar infiltrate. Mediastinum is midline with a dual lead left subclavian cardiac electronic device. No evidence of pne umothorax. IMPRESSION: Pulmonary vascular congestion with probable small bilateral pleural effusions.
[2019-05-15] MEDS ORDERED: Furosemide 20 MG/2 ML VIAL SLOW IVP SCH (10:45)
--- NOTE | 2019-05-15 18:29 | PRG ---
DATE OF SERVICE: 05/15/2019 SUBJECTIVE: The patient remains on the surgical floor. The patient did pull out her Chand during the night, likely due to her Parkinson's. The patient has been voiding without any difficulty since. The patient had some mild tachycardia overnight. The patient denies any increasing shortness of breath or chest pain. The patient denies cough. The patient's family reports that her face was flushed while she had a fever earlier. OBJECTIVE: VITAL SIGNS: Temperature 98.5, heart rate 102, respirations 16, SpO2 of 94% on 2 L, blood pressure 135/77. GENERAL: Elderly female, lying in hospital bed, no acute distress. PULMONARY: Equal chest rise and fall, coarse breath sounds bilateral bases. No respiratory distress. ABDOMEN: Obese, soft, nontender. EXTREMITIES: Moves all extremities. Positive distal pulses. Sensation intact, chronic pedal edema. LABORATORY DATA: WBC 8.9, RBC 3.81, hemoglobin 12.1, hematocrit 37.9, platelets 232. Sodium 139, potassium 4.8, chloride 100, BUN 19, creatinine 0.67, estimated GFR 84, glucose 158, calcium 8.7, phosphorus 2.9 magnesium 2.2. BNP 408.1. DIAGNOSTIC DATA: Chest x-ray, impression, pulmonary vascular congestion with small bilateral pleural effusions. ASSESSMENT: 1. Status post ground level fall, on Eliquis. 2. T11 fracture with hematoma. 3. Hyponatremia, resolved. 4. Hyperkalemia, resolved. 5. Acute kidney injury, resolved. 6. Parkinson's. 7. Bilateral small pleural effusions. 8. Atelectasis. 9. History of chronic sacral fracture, congestive heart failure with diastolic dysfunction, pacemaker, hypertension, pulmonary embolism, dyslipidemia, chronic obstructive pulmonary disease, breast and uterine cancer, bilateral mastectomy, and osteoporosis. PLAN: Continue regular diet and pain regimen. Continue physical and occupational therapy. Continue free water restriction to 1 liter a day. Continue aggressive pulmonary toilet. Continue to have patient in the chair as much as possible during the day. We will gently diurese the patient and restart her diuretics. We will also restart patient's home potassium daily, now that were putting her back on her diuretics. The patient will most likely go to rehab tomorrow. The plan was discussed with the patient and daughter who agree. Job ID: [id number]
[2019-05-15] MEDS: guaiFENesin ER 600 MG TAB PO SCH (20:44)
[2019-05-16] MEDS: Acetaminophen 325 MG TAB PO SCH ×3 (00:35→11:47)
--- NOTE | 2019-05-16 01:13 | PRG ---
DATE OF SERVICE: 05/15/2019 SUBJECTIVE: Patient was seen this evening during rounds. She was sitting up in bed with no signs of acute distress. She was mildly confused but cooperative. OBJECTIVE: VITAL SIGNS: Temperature 97.9, pulse 99, respirations 18, oxygen saturation 95% on 2.5 L nasal cannula, blood pressure 128/74. GENERAL: Well-appearing elderly female, lying in bed with no signs of acute distress. PULMONARY: Equal chest rise and fall. No signs of acute respiratory distress. ASSESSMENT: 1. Status post ground level fall, on Eliquis. 2. T11 fracture with hematoma. 3. Hyponatremia, resolving. 4. Bjvjd-mt-hijmjnb kidney disease, resolved. 5. Parkinson's. 6. History of chronic sacral fractures, congestive heart failure with diastolic dysfunction, pacemaker, hypertension, pulmonary embolism, dyslipidemia, chronic obstructive pulmonary disease, breast and uterine cancer, bilateral mastectomy, and osteoporosis. PLAN: Continue current diet and pain regimen. Continue free water restriction. The patient is restarted back on her home diuretic. We will follow up labs in the morning. She does not appear to need additional Lasix at this time. Job ID: [id number]
[2019-05-16 06:41] LABS: Mean Corpuscular HGB CONC 31.4 g/dL (32.0-36.0); Mean Corpuscular Volume 98.8 fL (78.0-98.0); Mean Platelet Volume 7.5 fL (7.4-10.4); Platelet Count 250 thou/uL (130-400); RBC Distribution Width 14.3 % (11.5-14.5); Red Blood Cell (RBC) Count 3.87 mill/uL (4.20-5.40); White Blood Cell (WBC) Count 8.3 thou/uL (4.8-10.8)
[2019-05-16 06:47] LABS: Band 10 % (5-11); Lymphocytes 10 % (21-51); MDiff Complete? YES; Monocytes 7 % (0-10); Neutrophil 73 % (42-75)
[2019-05-16 07:10] LABS: BUN (Urea Nitrogen) 23 mg/dL (9.8-20.1); Calc. Creatinine Clearance 92 mL/min (70-130); Calcium 8.8 mg/dL (7.8-10.44); Estimated GFR-MDRD 83; Glucose 85 mg/dL (83-110); Magnesium 2.1 mg/dL (1.6-2.6); Phosphorus 2.5 mg/dL (2.3-4.7)
[2019-05-16] MEDS: Mometasone/Formoterol 120 PUFF INHALER INH SCH (07:12)
[2019-05-16 07:22] LABS: Chloride 96 mmol/L (98-107); Potassium 4.3 mmol/L (3.5-5.1); Sodium 139 mmol/L (136-145)
[2019-05-16 07:24] LABS: Anion Gap 12 mmol/L (10-20); Carbon Dioxide 35 mmol/L (23-31)
[2019-05-16] MEDS ORDERED: Spironolactone 25 MG TAB PO SCH (08:00)
[2019-05-16] MEDS ORDERED: Multivit, Therapeutic 1 TAB PO SCH (09:00)
[2019-05-16] MEDS ORDERED: Bumetanide 1 MG TAB PO SCH (09:00)
[2019-05-16] MEDS ORDERED: Calcium Carbonate 500 MG TAB PO SCH (09:00)
[2019-05-16] MEDS ORDERED: AcetaZOLAMIDE 250 MG TAB PO SCH (09:00)
[2019-05-16] MEDS: Polyethylene Glycol 3350 17 GM Packet PO SCH (09:34)
[2019-05-16] MEDS: guaiFENesin ER 600 MG TAB PO SCH (09:36)
[2019-05-16] MEDS: Senokot S 8.6-50 MG TAB PO SCH (09:36)
[2019-05-16] MEDS: Pantoprazole 40 MG GRANULES PACKET PO SCH (09:36)
[2019-05-16] MEDS: Montelukast Sodium 10 mg Tablet PO SCH (09:37)
[2019-05-16] MEDS: Escitalopram Oxalate 20 mg Tablet PO SCH (09:37)
[2019-05-16] MEDS: Gabapentin 300 MG CAP PO SCH (09:37)
[2019-05-16] MEDS: Bupropion 150 MG XL TAB PO SCH (09:37)
[2019-05-16] MEDS: Pramipexole Di-HCl 1 MG TAB PO SCH (09:37)
[2019-05-16] MEDS: Carbidopa/Levodopa 25-100 mg Tablet PO SCH (09:37)
[2019-05-16] MEDS: Potassium Chloride 20 MEQ TAB PO SCH (10:03)
--- NOTE | 2019-05-16 10:52 | PDOC.PALPN ---
Palliative Progress Note - Subjective Awake, confusion but cheerful. Clamshell in place. Paid caregiver and daughter at bedside. - Objective Vital Signs: Vital Signs - Most Recent Temp Pulse Resp BP Pulse Ox 97.5 F L 100 20 118/75 94 L 05/16/19 07:50 05/16/19 07:50 05/16/19 07:50 05/16/19 07:50 05/16/19 08:00 - Physical Exam Constitutional: confusion, ill appearing HEENT: EOMI, moist MMs, sclera anicteric Respiratory: cough, diminished lung sound Cardiovascular: RRR, diminished peripheral pulses Deviation from normal: Pedal present, but slightly diminished Gastrointestinal: soft, non-tender, positive bowel sounds, incontinent Genitourinary: incontinent Musculoskeletal: diffuse muscle atrophy Neurology: moves all 4 limbs, speech deficit Deviation from normal: tremor, "rolling" hands bilaterally, more pronounced to right Skin: bruising, fragile Deviation from normal: Oriented to self, family, intermittant confusion and word salad - Assessment (1) Palliative care encounter Code(s): Z51.5 - ENCOUNTER FOR PALLIATIVE CARE Status: Acute (2) Physical deconditioning Code(s): R53.81 - OTHER MALAISE Status: Acute (3) Parkinsonian features Code(s): R25.9 - UNSPECIFIED ABNORMAL INVOLUNTARY MOVEMENTS Status: Acute (4) Fracture lumbar vertebra-closed Code(s): S32.009A - UNSP FRACTURE OF UNSP LUMBAR VERTEBRA, INIT FOR CLOS FX Status: Acute (5) Acute on chronic kidney failure Code(s): N17.9 - ACUTE KIDNEY FAILURE, UNSPECIFIED; N18.9 - CHRONIC KIDNEY DISEASE, UNSPECIFIED Status: Acute - Plan Plan: Patient to discharge to Rehab, daughter given information in relation to resource for caregivers to sit with her mom. Plan to transition to home health/ palliative care upon discharge from rehab. Communicate with trauma/appears patient has not had a BM, if needed will suggest lactulose Daughter asked about increasing Sinement, suggested to wait for two weeks. Therapeutic Listening and supportive care. [45] minutes spent on this encounter with >50% of the time in counseling and coordination of care. - ROS Non Response: due to mental status (Not fully reliable for ROS secondary to intermittant confusion)
[2019-05-16 11:31] VITALS: BP 141/87; TEMP 99
--- NOTE | 2019-05-17 12:36 | DIS ---
DATE OF ADMISSION: 05/10/2019 DATE OF DISCHARGE: 05/16/2019 RESIDENT: Fly Tovar MD. ADMITTING ATTENDING: Tu Leiva DO DISCHARGE ATTENDING: Tu Leiva DO. CONSULTS: 1. Physician's assistant production editor, Tawny Soler. 2. Luanne Remy, Palliative Care. 3. Dr. Daniele Decker, Neurosurgery. 4. Dr. Jeffery Anthony, Cardiovascular Surgery. 5. Dr. Charleen Scales, Neurology. PROCEDURES: 1. IVC filter placement. 2. Head CT without contrast dated 05/10/2019. No acute findings. 3. CT lumbar spine without contrast dated 05/10/2019, demonstrating probable pathologic fracture at the T11 vertebral body with abnormal soft tissue attenuation replacing the majority of the T11 vertebral body with diffuse bone demineralization with probable osteoporotic fracture involving the lumbar spine and sacrum. Sacral fractures are felt to be chronic at this time. 4. CT pelvis without contrast dated 05/10/2019, demonstrating age indeterminate S2 transverse fracture, intact femoral heads and necks, insufficiency fracture healing right S1. 5. Portable chest radiograph demonstrating stable appearance without acute findings. 6. MRI of cervical spine with and without contrast dated 05/11/2019, demonstrating cervical spine degeneration throughout with disk space narrowing throughout. 7. MRI brain with and without IV contrast demonstrating no acute intracranial processes, masses, or evidence of metastatic disease. 8. MRI thoracic spine with and without contrast dated 05/11/2019, demonstrating an unusual expansile lesion on the anterior inferior half of the T11 vertebral body, most likely an expansile hematoma as well as spinal cord impingement at the T11-T12 level due to high-grade central spinal canal stenosis due to retrolisthesis of T11 onto the T12. Subsequent bilateral neuroforaminal stenosis also noted. 9. Chest x-ray dated 05/15/2019, demonstrated cardiac silhouette magnified within the upper limits of normal size. Pulmonary vasculature slightly engorged, each hemidiaphragm partially obscured by ill-defined opacity favored to represent pleural effusion and patchy bibasilar infiltrate, most consistent with pulmonary vascular congestion. Probable small bilateral pleural effusions. PRIMARY DIAGNOSIS: T11 fracture with subsequent hematoma formation. SECONDARY DIAGNOSES: 1. Abrasion, right lateral thigh. 2. Hyponatremia, resolved. 3. Chronic kidney disease, acute on chronic. 4. Parkinson disease. 5. Bilateral pleural effusions, resolved. 6. Chronic sacral fractures. 7. Congestive heart failure. 8. Hypertension. 9. History of pulmonary embolism. 10. Dyslipidemia. 11. Chronic obstructive pulmonary disease. 12. Breast and uterine cancer. 13. Osteoporosis. DISCHARGE MEDICATIONS: 1. Acetaminophen 325 mg p.o. q.6 hours. 2. Acetaminophen with codeine 300 mg/30 mg combination one tab p.o. q.6 hours p.r.n., 2 tabs p.o. q.6 hours p.r.n. 3. Acetazolamide 250 mg p.o. daily. 4. Bumetanide 2 mg p.o. daily. 5. Carbidopa/levodopa one tab p.o. t.i.d. 6. Cyclobenzaprine 5 mg p.o. t.i.d. 7. Gabapentin 300 mg p.o. t.i.d. 8. DuoNebs 3 mL q.4 hours. 9. Zofran 4 mg p.o. q.6 hours. 10. Polyethylene glycol 17 g p.o. daily. 11. Senokot-S 2 tabs p.o. b.i.d. 12. Spironolactone 50 mg p.o. daily. HISTORY OF PRESENT ILLNESS/HOSPITAL COURSE: The patient is an 83-year-old female who lives at home with a machine cloth trimmer. The patient has significant past medical history of diastolic dysfunction with preserved ejection fraction; recent pacemaker placement; history of PEs, on long-term Eliquis; COPD; and chronic pedal edema, who reported falling as she was trying to get into her wheelchair. The patient was at home alone when the fall happened. The patient denies feeling weak, dizzy, short of breath, or having chest pain prior to falling. The patient denies hitting her head. The patient was found the next day by her machine cloth trimmer lying on the ground. The patient was unable to get herself up off the ground and back into her wheelchair. The patient reported low back pain; as a result, the patient continued to have low back pain and her machine cloth trimmer noticed that she was not able to transition herself from wheelchair to bed. The patient was brought to the emergency department for evaluation by a machine cloth trimmer via private vehicle. The patient was evaluated and found to have a T11 fracture with retropulsion. The patient denied any numbness or tingling to extremities. Neurosurgery was consulted, and a TLSO clamshell was ordered for all times. Trauma Service was asked to admit the patient. The patient and caregiver reported rash on chest and abdomen that started earlier that day. The patient reports that she got a similar rash following placement of her pacemaker several months prior. The patient denies any itching of the rash. Nursing staff reports redness increased since arrival in the emergency room. She was subsequently stabilized and transitioned to the surgical floor for continued evaluation. An MRI was obtained that demonstrated a suspected hematoma formation at the T11 level, most likely due to the aforementioned fracture. While admitted to the hospital, the patient received physical and occupational therapy. Her home Eliquis was held secondary to fall risk. Pain was adequately controlled during hospital stay. An IVC filter was placed by Dr. Raj Gil, Cardiovascular Surgery as the patient was at a high risk for pulmonary embolism, but could not be anticoagulated due to the aforementioned hematoma. Following orchestration with Case Management for inpatient physical therapy rehab, the patient was subsequently prepped for discharge. Prior to discharge, the patient's vital signs were recorded as temperature 99, pulse 98, respirations 16, O2 saturation 98% on 2 L nasal cannula, and blood pressure 141/87. LABORATORY ANALYSIS: Revealed a white blood cell count of 8.3, hemoglobin 12, hematocrit 38.2, and platelet count 250. Chem panel revealed a sodium of 139, potassium 4.3, chloride 96, carbon dioxide 35, BUN 23, creatinine 0.68, and glucose 85. DISPOSITION: Stable. DISCHARGE INSTRUCTIONS: 1. Location: Inpatient Rehab Facility, [facility] in [place], [place]. 2. Diet: Heart healthy. 3. Activity: Orthopedic limitations to include TLSO at all times. 4. Followup: The patient was advised to follow up with Dr. Daniele Decker in 3 to 4 weeks as well as her primary care provider, Dr. Julio Muir in 3 to 4 weeks in order to discuss her most recent hospitalization. The aforementioned plan was reviewed with Dr. Tu Leiva prior to discharge and the patient was seen on morning rounds. All pertinent labs and images were reviewed prior to discharge. Job ID: [id number]
== END 2019-05-16 14:47 | DRG 516 ==
LOC: ERS 10:03 → SJJU 13:34
PROVIDERS: ADMIT Specialist; ATTEND Specialist
PROC: 06H03DZ Insertion of Intraluminal Device into Inferior Vena Cava, Percutaneous Approach (ICD-10-PCS; principal; 2019-05-14)
DX: S22.089A Unspecified fracture of T11-T12 vertebra, initial encounter for closed fracture (principal); E87.1 Hypo-osmolality and hyponatremia; I13.0 Hypertensive heart and chronic kidney disease with heart failure and stage 1 through stage 4 chronic kidney disease, or unspecified chronic kidney disease; J90 Pleural effusion, not elsewhere classified; C79.82 Secondary malignant neoplasm of genital organs; N17.9 Acute kidney failure, unspecified; I50.32 Chronic diastolic (congestive) heart failure; J98.11 Atelectasis; C50.919 Malignant neoplasm of unspecified site of unspecified female breast; N18.3 Chronic kidney disease, stage 3 (moderate); G20 Parkinson's disease; E83.39 Other disorders of phosphorus metabolism; S70.311A Abrasion, right thigh, initial encounter; E78.5 Hyperlipidemia, unspecified; J44.9 Chronic obstructive pulmonary disease, unspecified; F41.9 Anxiety disorder, unspecified; F32.9 Major depressive disorder, single episode, unspecified; M81.0 Age-related osteoporosis without current pathological fracture; E87.5 Hyperkalemia; Z86.711 Personal history of pulmonary embolism; Z79.01 Long term (current) use of anticoagulants; Z90.710 Acquired absence of both cervix and uterus; Z90.49 Acquired absence of other specified parts of digestive tract; Z95.0 Presence of cardiac pacemaker; Z90.13 Acquired absence of bilateral breasts and nipples
CPT/HCPCS: 36415; 37191; 51701; 70450; 70553; 71045; 72131; 72156; 72157; 72158; 72192; 76942; 80048; 80053; 81003; 81015; 82533; 82550; 82553; 83735; 83880; 84100; 84484; 85007; 85025; 85027; 87086; 94640; A4353; A9579; C1769; C1880; J1644; J1720; J1940; J2001; J2270; J3480; J7050; J7512; J7620; Q0163; Q9967